=== PATIENT | male | born 1970 | race Caucasian/White ===

== ENCOUNTER 2020-04-27 08:06 | Outpatient (REF) | payer OTHER, SELFPAY | END 2020-04-27 08:07 | disposition home or self-care (01) | LOC: HO.LAB 08:06 | PROVIDERS: Visit Provider Internal Medicine | DX: Z20.822 Contact with and (suspected) exposure to COVID-19 (principal) | CPT/HCPCS: 36415; C9803; U0003; U0005 ==

== ENCOUNTER 2020-12-28 20:43 | Emergency (ER) | payer OTHER, SELFPAY ==
--- NOTE | ~2020-12-28 | CT_ITS ---
EXAMINATION: CT ABDOMEN AND PELVIS WITH CONTRAST CLINICAL INFORMATION: Right lower quadrant pain COMPARISON: None TECHNIQUE: Multidetector volumetric images were obtained from the superior aspect of the liver through the pubic symphysis following administration 85 mL of Omnipaque 350 intravenous contrast. Sagittal and coronal reformatted images were obtained on the technologist's workstation. Oral contrast: No This CT examination was performed using dose optimization techniques as appropriate, variously including the following: *Automated exposure control *Adjustment of mA and/or kV according to patient size (this includes techniques or standardized protocols for targeted exams where dose is matched to indication/reason for exam; i.e. extremities or head) *Use of iterative reconstruction technique DLP: 597 mGy-cm FINDINGS: LUNG BASES: The visualized lung bases are unremarkable. LIVER, GALLBLADDER, AND BILIARY TREE: The liver is normal in size, shape, and attenuation. No focal hepatic lesion or biliary ductal dilatation is present. The gallbladder is unremarkable with no evidence of radiopaque gallstones, gallbladder wall thickening, or obvious pericholecystic inflammatory changes. PANCREAS: Unremarkable. SPLEEN: Unremarkable. ADRENAL GLANDS: Unremarkable. KIDNEYS AND URETERS: The kidneys are normal in size, shape, and attenuation. No hydronephrosis, hydroureter, or calculi seen. No perinephric stranding. BLADDER: Unremarkable. GASTROINTESTINAL TRACT: Wall thickening of the distal esophagus. The stomach is unremarkable. Normal caliber small bowel. Normal appendix. No colonic wall thickening or inflammatory change. Scattered diverticulosis without diverticulitis. No free air or free fluid. ABDOMINAL WALL: No significant hernia is appreciated. LYMPH NODES: Normal. VASCULAR: Unremarkable. PELVIC VISCERA: The prostate and seminal vesicles are unremarkable. OSSEOUS STRUCTURES: No acute or suspicious osseous abnormality. Mild degenerative change throughout the spine. CT/CT abdomen pelvis w con IMPRESSION: No acute findings in the abdomen or pelvis. Normal appendix.
[2020-12-28 22:12] VITALS: BP 123/89; PULSE 111; RESP 18; TEMP 37.4; O2SAT 96; BMI 25.2
[2020-12-28 23:07] LABS: COVID-19 Test Negative (Negative); IDNOW Serial# 9DD0AD1C
--- NOTE | 2020-12-29 01:23 | ED.GENADULT ---
HPI - General Adult General Chief complaint: Abdominal Pain Stated complaint: abd pain, vomitting Time Seen by Provider: 12/29/20 00:51 Source: patient Mode of arrival: ambulatory Limitations: no limitations History of Present Illness HPI narrative: Patient comes to the emergency room complaining of 3 days of abdominal pain. Patient states it starts in the right lower quadrant, sometimes in his flank pain, the back. Patient states that he has been making himself throw up which makes him feel better. Patient denies diarrhea. Patient states that he has been nauseous, unable to drink any fluids., denies fever chills, no dysuria or hematuria. Related Data Previous Rx's Medication Instructions Recorded cyclobenzaprine 10 mg tablet 10 mg PO TID PRN #7 tab 12/29/20 hyoscyamine sulfate 0.125 mg tablet 0.125 mg PO QID PRN #7 tab 12/29/20 Allergies Allergy/AdvReac Type Severity Reaction Status Date / Time No Known Allergies Allergy Verified 12/28/20 22:11 Review of Systems Review of Systems: Constitutional : No Weight loss, No Fever, No Chills, No Night Sweats, No Fatigue, No Malaise ENT/Mouth : No Hearing loss, No Ear Pain, No Nasal Congestion, No Sinus Pain, No Hoarseness, No sore throat, No Rhinorrhea, No Swallowing Difficulty Eyes: No Eye Pain, No Swelling, No Redness, No Foreign Body, No Discharge, No Vision Changes Cardiovascular : No Chest Pain, No SOB, No Dyspnea on Exertion, No Orthopnea, No Edema, No Palpitations Respiratory : No Cough, No Sputum, No Wheezing, No Smoke Exposure, No Dyspnea Gastrointestinal : Complaining of nausea, self-induced vomiting, no diarrhea, right lower quadrant, right flank pain, right back pain . Genitourinary : no irregular bleeding, No Dysuria, No Urinary Frequency, No Hematuria, No Urinary Incontinence, No Urgency, No Flank Pain, No Urinary Flow Changes, No Hesitancy Musculoskeletal : No joint pain, No Myalgias, No Joint Swelling Skin : No Skin Lesions, No rash Neuro : No Weakness, No Numbness, No Paresthesias, No Loss of Consciousness, No Dizziness, No Headache Psych : No Anxiety/Panic, No Depression, No SI/HI/AH/VH, No Social Issues, Heme/Lymph: No Bruising, No Bleeding,No Lymphadenopathy Endocrine : No Polyuria, No Polydipsia, No Temperature Intolerance [facility] Past Medical History Medical History Diabetes GERD (gastroesophageal reflux disease) Social History Social History Advance Directives: No Advance Directives Information Provided: No Physical Exam Vital Signs: Vital Signs: Last Vital Signs Temp 98.3 F 12/29/20 01:32 Pulse 105 H 12/29/20 01:32 Resp 16 12/29/20 01:32 BP 131/94 H 12/29/20 01:32 Pulse Ox 97 12/29/20 01:32 Body Mass Index 25.2 Const: Other: Appearance: Alert. Oriented X3. No acute distress. Eyes: Pupils equal, round and reactive to light. ENT: Pharynx normal. Neck: Normal inspection. Neck supple. No lymph nodes noted. No crepitus CVS: Normal heart rate and rhythm. Pulses normal. Normal S1 and S2 Respiratory: No respiratory distress. Breath sounds normal. No Wheezing. No rales Abdomen: Soft , mild tenderness to deep palpation in the right lower quadrant, no CVA tenderness, No rigidity. No distention. Skin: Skin warm and dry. Normal skin color. Normal skin turgor. Extremities: No lower extremity edema. No lower extremity edema. No Lacerations. No Rash Neuro: Oriented X 3. No motor deficit. No sensory deficit. Moving all extermities. No slurred speech. Course Course Course Narrative: I discussed the labs and imaging with the patient, no acute findings. Patient's pain likely musculoskeletal. Medical Decision Making Lab Data Result diagrams: 12/29/20 01:41 12/29/20 01:41 Labs: Lab Results 12/28/20 12/29/20 12/29/20 Range/Units 22:21 01:41 01:41 WBC 9.0 (4.8-10.8) X10*3/uL RBC 5.67 (4.60-5.80) X10*6/uL Hgb 17.8 (14.0-18.0) g/dl Hct 50.5 (42-52) % MCV 89.1 (80-98) fL MCH 31.4 (27.0-33.0) pg MCHC 35.2 (31.0-36.0) g/dl RDW 13.2 (11.0-16.0) % Plt Count 209 (160-400) X10*3/uL MPV 10.5 (9.4-12.4) fL Immature Gran % (Auto) 0.2 (0.0-0.4) % Neut % (Auto) 77.2 H (45-73) % Lymph % (Auto) 15.8 L (20-40) % [place] % (Auto) 6.1 (2-11) % Eos % (Auto) 0.6 (0-4) % Baso % (Auto) 0.1 (0-2) % Lymph # (Auto) 1.4 (1.2-4.9) X10*3/uL [place] # (Auto) 0.6 (0.1-1.2) X10*3/uL Eos # (Auto) 0.1 (0.0-0.4) X10*3/uL Baso # (Auto) 0.0 (0.0-0.2) X10*3/uL Abs Immat Gran (auto) 0.02 (0.00-0.03) X10*3/uL Absolute Neuts (auto) 6.9 (2.0-8.3) X10*3/uL Absolute Nucleated RBC 0.000 (0.0-0.012) X10*3/uL Nucleated RBC % (auto) 0.0 (0.0-0.2) /100WBC Sodium 141 (135-145) mmol/L Potassium 4.3 (3.3-5.1) mmol/L Chloride 98 (96-108) mmol/L Carbon Dioxide 30 H (22-29) mmol/L Anion Gap 17 (12-20) BUN 25 H (9-16) mg/dL Creatinine 1.09 (0.5-1.4) mg/dL Estim Creat Clear Calc 88.2 Estimated GFR > 60 POC Glucose (60-115) mg/dL Random Glucose 130 H (60-115) mg/dL Calcium 10.7 H (8.4-10.2) mg/dL Total Bilirubin 1.1 H (0.0-1.0) mg/dL AST 20 (5-37) U/L ALT 25 (0-40) U/L Alkaline Phosphatase 69 (39-117) U/L Total Protein 9.1 H (6.5-8.0) g/dL Albumin 5.4 H (3.5-5.0) g/dL Lipase (8-78) U/L Urine Color Urine Appearance Urine pH (5.0-8.0) Ur Specific [place] (1.005-1.025) Urine Protein (NEG-TRACE) MG/DL Urine Glucose (UA) (NEG) MG/DL Urine Ketones (NEG) MG/DL Urine Blood (NEG) Urine Nitrite (NEG) Ur Leukocyte Esterase (NEG) Urine RBC (0) /HPF Urine WBC (0-4) /HPF Ur Squamous Epith Cells /LPF Urine Bacteria /LPF COVID-19 ([facility]) Negative (Negative) COVID-19 Clin Com See Note 12/29/20 12/29/20 12/29/20 Range/Units 01:41 01:41 02:04 WBC (4.8-10.8) X10*3/uL RBC (4.60-5.80) X10*6/uL Hgb (14.0-18.0) g/dl Hct (42-52) % MCV (80-98) fL MCH (27.0-33.0) pg MCHC (31.0-36.0) g/dl RDW (11.0-16.0) % Plt Count (160-400) X10*3/uL MPV (9.4-12.4) fL Immature Gran % (Auto) (0.0-0.4) % Neut % (Auto) (45-73) % Lymph % (Auto) (20-40) % [place] % (Auto) (2-11) % Eos % (Auto) (0-4) % Baso % (Auto) (0-2) % Lymph # (Auto) (1.2-4.9) X10*3/uL [place] # (Auto) (0.1-1.2) X10*3/uL Eos # (Auto) (0.0-0.4) X10*3/uL Baso # (Auto) (0.0-0.2) X10*3/uL Abs Immat Gran (auto) (0.00-0.03) X10*3/uL Absolute Neuts (auto) (2.0-8.3) X10*3/uL Absolute Nucleated RBC (0.0-0.012) X10*3/uL Nucleated RBC % (auto) (0.0-0.2) /100WBC Sodium (135-145) mmol/L Potassium (3.3-5.1) mmol/L Chloride (96-108) mmol/L Carbon Dioxide (22-29) mmol/L Anion Gap (12-20) BUN (9-16) mg/dL Creatinine (0.5-1.4) mg/dL Estim Creat Clear Calc Estimated GFR POC Glucose 134 H (60-115) mg/dL Random Glucose (60-115) mg/dL Calcium (8.4-10.2) mg/dL Total Bilirubin (0.0-1.0) mg/dL AST (5-37) U/L ALT (0-40) U/L Alkaline Phosphatase (39-117) U/L Total Protein (6.5-8.0) g/dL Albumin (3.5-5.0) g/dL Lipase 23 (8-78) U/L Urine Color YELLOW Urine Appearance CLEAR Urine pH 6.0 (5.0-8.0) Ur Specific [place] >= 1.030 H (1.005-1.025) Urine Protein 1+ H (NEG-TRACE) MG/DL Urine Glucose (UA) NEG (NEG) MG/DL Urine Ketones 15 (NEG) MG/DL Urine Blood NEG (NEG) Urine Nitrite NEG (NEG) Ur Leukocyte Esterase NEG (NEG) Urine RBC 0 (0) /HPF Urine WBC 0-2 (0-4) /HPF Ur Squamous Epith Cells NONE /LPF Urine Bacteria NONE /LPF COVID-19 ([facility]) (Negative) COVID-19 Clin Com Discharge Plan Discharge Clinical Impression: Abdominal pain, Flank pain Patient Disposition: Home, Self-Care Instructions: Abdominal Pain (ED), Flank Pain (ED) Additional Instructions: Please follow-up with your primary care physician tomorrow. If you have any worsening or new symptoms, please return to the emergency room or call 911 Prescriptions: New hyoscyamine sulfate 0.125 mg tablet 0.125 mg PO QID PRN (Reason: dyspepsia) Qty: 7 RF: 0 cyclobenzaprine 10 mg tablet 10 mg PO TID PRN (Reason: muscle spasm) Qty: 7 RF: 0
[2020-12-29 01:32] VITALS: BP 131/94; PULSE 105; RESP 16; TEMP 36.8; O2SAT 97
[2020-12-29] MEDS: ondansetron HCL 4 MG/2 ML VIAL IVPUSH (01:46)
[2020-12-29 01:47] LABS: MANUAL DIFF FLAG NO
[2020-12-29] MEDS: 0.9 % Sodium Chloride 1,000 ML 999 ML IVCONT (01:47)
[2020-12-29 01:49] LABS: Basophils Percent Auto 0.1 % (0-2); Eosinophils Absolute Auto 0.1 X10*3/uL (0.0-0.4); Eosinophils Percent Auto 0.6 % (0-4); Hematocrit 50.5 % (42-52); Hemoglobin 17.8 g/dl (14.0-18.0); Imm Gran Abs Auto 0.02 X10*3/uL (0.00-0.03); Imm Gran Pct Auto 0.2 % (0.0-0.4); Lymphocytes Absolute Auto 1.4 X10*3/uL (1.2-4.9); Lymphocytes Percent Auto 15.8 % (20-40); Mean Corpuscular HGB Conc 35.2 g/dl (31.0-36.0); Mean Corpuscular Hemoglobin 31.4 pg (27.0-33.0); Mean Corpuscular Volume 89.1 fL (80-98); Mean Platelet Volume 10.5 fL (9.4-12.4); Monocytes Absolute Auto 0.6 X10*3/uL (0.1-1.2); Monocytes Percent Auto 6.1 % (2-11); Neutrophils Absolute Auto 6.9 X10*3/uL (2.0-8.3); Neutrophils Percent Auto 77.2 % (45-73); Platelet Count 209 X10*3/uL (160-400); Red Blood Count 5.67 X10*6/uL (4.60-5.80); Red Cell Distribution Width 13.2 % (11.0-16.0)
[2020-12-29 02:03] LABS: Appearance Urine CLEAR; Color Urine YELLOW; Glucose Urine UA NEG (NEG); Leukocyte Esterase Urine NEG (NEG); Nitrite Urine NEG (NEG); Specific Gravity - Urine >= 1.030 (1.005-1.025); UACC Culture Trigger NO; Urine Blood NEG (NEG); Urine Ketones 15 MG/DL (NEG); Urine Protein 1+ MG/DL (NEG-TRACE)
[2020-12-29 02:07] LABS: Glucose, Whole Blood 134 mg/dL (60-115)
[2020-12-29 02:12] LABS: Lipase 23 U/L (8-78)
[2020-12-29 02:16] LABS: Alanine Aminotransferase 25 U/L (0-40); Albumin Level 5.4 g/dL (3.5-5.0); Alkaline Phosphatase 69 U/L (39-117); Anion Gap 17 (12-20); Aspartate Amino Transferase 20 U/L (5-37); Bilirubin Total 1.1 mg/dL (0.0-1.0); Blood Urea Nitrogen 25 mg/dL (9-16); Calcium 10.7 mg/dL (8.4-10.2); Carbon Dioxide 30 mmol/L (22-29); Chloride 98 mmol/L (96-108); Creatinine Clr Calc Pharmacy 88.2; Estimated Glomerular Filt Rate > 60; Glucose Random 130 mg/dL (60-115); Potassium 4.3 mmol/L (3.3-5.1); RBC Urine 0 /HPF (0); Sodium 141 mmol/L (135-145); Total Protein 9.1 g/dL (6.5-8.0); WBC Urine 0-2 /HPF (0-4)
[2020-12-29] MEDS: Prochlorperazine Edisylate 10 MG/2 ML VIAL IVPUSH (03:29)
[2020-12-29 05:16] VITALS: BP 138/86; PULSE 92; RESP 16; TEMP 36.8; O2SAT 96
== END 2020-12-29 05:23 | disposition home or self-care (01) ==
PROVIDERS: Emergency Provider Emergency Medicine
DX: R10.9 Unspecified abdominal pain (principal); Z20.822 Contact with and (suspected) exposure to COVID-19; Z79.899 Other long term (current) drug therapy
CPT/HCPCS: 36415; 74177; 80053; 81001; 81003; 82947; 83690; 85025; 87635; 96361; 96374; 96375; 99284; J2405

== ENCOUNTER 2021-02-15 04:14 | Inpatient (IN) | payer OTHER, SELFPAY ==
--- NOTE | ~2021-02-15 | MR_ITS ---
EXAMINATION: MR FOOT WITHOUT AND WITH CONTRAST, RIGHT CLINICAL INFORMATION: Diabetes. COMPARISON: X-ray of the left foot January 2021 TECHNIQUE: MRI of the right foot was performed without and with contrast. Contrast dose: 10 mL of Gadavist given intravenously. FINDINGS: SUBCUTANEOUS SOFT TISSUES: There appears to be irregularity and possible ulceration along the lateral plantar aspect of the forefoot at the level of the 5th metatarsophalangeal joint. This measures approximately 14 mm as seen on the sagittal image 25 series 3. The medial and lateral borders are not clearly defined on the short axis coronal images. Deep to this suspected ulceration is abnormal signal decreased T1 and heterogeneously increased on T2 without central enhancement. There is some generalized enhancement in the subcutaneous soft tissues medial and dorsal to this area. This could reflect an evolving abscess or area of adventitial bursitis. FIFTH METATARSOPHALANGEAL JOINT: There is a joint effusion and arthrosis with some cartilage loss and subchondral cystic change. There is also bone marrow edema crossing the joint present within the metatarsal head and throughout the proximal two-thirds portion of the proximal phalanx. No definite bone erosion. FIRST METATARSOPHALANGEAL JOINT: There is a mild joint effusion. No definite arthrosis. No marrow edema. There is generalized abnormal signal in the dorsal subcutaneous soft tissues with partial enhancement compatible with a combination of edema and cellulitis. There is generalized abnormal signal with some enhancement of the muscles of the foot compatible with nonspecific myositis. The tendons are intact. The neurovascular structures are intact. MR/MR foot RT wo/w con IMPRESSION: Suspect small soft tissue ulceration along the lateral aspect of the forefoot at the level of the 5th metatarsophalangeal joint. There is abnormal signal in the underlying subcutaneous soft tissues which I suspect reflects a localized cellulitis, evolving abscess or adventitial bursitis. Indeterminant findings across the 5th metatarsophalangeal joint. This could be a sequela of osteoarthritis. However, cannot exclude early septic arthritis and osteomyelitis given the patient's history and the surrounding soft tissue abnormality. Generalized abnormality in the subcutaneous soft tissues dorsally compatible with a combination of edema and cellulitis. Generalized abnormality of the muscles compatible with nonspecific myositis.
--- NOTE | ~2021-02-15 | XR_ITS ---
EXAMINATION: XR FOOT, RIGHT CLINICAL INFORMATION: Fifth metatarsal wound, rule out bone erosion COMPARISON: None TECHNIQUE: AP, lateral, and oblique views of the right foot. FINDINGS: Osseous alignment is anatomic. No acute fracture is seen. No cortical erosions are identified. Mild posterior calcaneal spurring is noted. Soft tissue swelling is suspected near the head of the fifth metatarsal. XR/XR foot RT 2V IMPRESSION: Soft tissue swelling near the head of the fifth metatarsal without appreciable cortical erosion.
[2021-02-15 04:17] VITALS: BP 107/77; PULSE 104; RESP 18; TEMP 37.3; O2SAT 97; BMI 27.8
--- NOTE | 2021-02-15 05:10 | ED_ITS ---
HPI - Extremity Problem General Chief complaint: Extremity Problem Stated complaint: right foot infection Time Seen by Provider: 02/15/21 05:08 Source: patient Mode of arrival: ambulatory Limitations: no limitations History of Present Illness HPI Narrative: patient diabetic for last 15 years on insulin and oral hyp oglycemic noticed small blister on the right lateral aspect of right foot for 5 days ago which got worse for last 2 days noticed redness spreading to the dorsum of the foot. No fever no chills patient's blood sugar is well controlled HbA1c less than 6 patient does have milddiabetic neuropathy and does not take any medications Related Data Previous Rx's Medication Instructions Recorded cyclobenzaprine 10 mg tablet 10 mg PO TID PRN #7 tab 12/29/20 hyoscyamine sulfate 0.125 mg tablet 0.125 mg PO QID PRN #7 tab 12/29/20 Allergies Allergy/AdvReac Type Severity Reaction Status Date / Time No Known Allergies Allergy Verified 12/28/20 22:11 Review of Systems Review of Systems: Yes all other systems are reviewed and are negative [facility] Past Medical History Medical History Diabetes GERD (gastroesophageal reflux disease) Social History Social History Advance Directives: No Advance Directives Information Provided: Yes Physical Exam Vital Signs: Vital Signs: Last Vital Signs Temp 99.2 F 02/15/21 04:17 Pulse 104 H 02/15/21 04:17 Resp 18 02/15/21 04:17 BP 107/77 02/15/21 04:17 Pulse Ox 97 02/15/21 04:17 Body Mass Index 27.8 Const: General: cooperative, healthy appearing and no acute distress Orientation/consciousness: patient oriented x3 HENMT: Head: Yes normocephalic and Yes atraumatic Mouth: Normal oral and palatal mucosa present Eyes: General: appearance normal, both eyes and all related structures Resp: Effort & Inspection: normal respiratory effort Auscultation: clear to auscultation bilaterally Cardio: Palpation: normal PMI Rate: regular rate Rhythm: regular rhythm Heart sounds: S1 normal heart sound present and S2 normal heart sound present Peripheral pulses: Peripheral pulses 2+ throughout GI: Inspection: Yes normal to inspection Palpation (GI): Soft to palpation and nontender Neuro: General: patient oriented x3, gait normal, no focal motor deficits and decrease sensation to monofilament (b/l feet) Extrem: Other: General: Yes other ( post debridement pictures are attached) MDM - Extremity (Nontraumatic) MDM Narrative Medical decision making narrative: patient diabetic foot with leukocytosis and cellulitis debridement done in the ER but because of diabetes worsening cellulitis in such a short. Will admit patient for IV antibiotics at this time there is no signs of osteomyelitis Lab Data Attestation: I reviewed the patient's lab results. Result diagrams: 02/15/21 05:30 02/15/21 05:30 Labs: Lab Results 02/15/21 02/15/21 02/15/21 Range/Units 05:30 05:30 05:30 WBC 16.8 H (4.8-10.8) X10*3/uL RBC 4.75 (4.60-5.80) X10*6/uL Hgb 14.7 (14.0-18.0) g/dl Hct 43.2 (42.0-52.0) % MCV 90.9 (80.0-98.0) fL MCH 30.9 (27.0-33.0) pg MCHC 34.0 (31.0-36.0) g/dl RDW 12.3 (11.0-16.0) % Plt Count 205 (160-400) X10*3/uL MPV 9.7 (9.4-12.4) fL Immature Gran % (Auto) 0.7 H (0.0-0.4) % Neut % (Auto) 84.9 H (45-73) % Lymph % (Auto) 6.6 L (20-40) % [place] % (Auto) 7.3 (2-11) % Eos % (Auto) 0.4 (0-4) % Baso % (Auto) 0.1 (0-2) % Lymph # (Auto) 1.1 L (1.2-4.9) X10*3/uL [place] # (Auto) 1.2 (0.1-1.2) X10*3/uL Eos # (Auto) 0.1 (0.0-0.4) X10*3/uL Baso # (Auto) 0.0 (0.0-0.2) X10*3/uL Abs Immat Gran (auto) 0.11 H (0.00-0.03) X10*3/uL Absolute Neuts (auto) 14.3 H (2.0-8.3) x10*3/uL Absolute Nucleated RBC 0.000 (0.0-0.012) X10*3/uL Nucleated RBC % (auto) 0.0 (0.0-0.2) /100WBC Sodium 135 (135-145) mmol/L Potassium 4.0 (3.3-5.1) mmol/L Chloride 100 (96-108) mmol/L Carbon Dioxide 26 (22-29) mmol/L Anion Gap 13 (12-20) BUN 13 (9-16) mg/dL Creatinine 0.91 (0.5-1.4) mg/dL Estim Creat Clear Calc 113.1 Estimated GFR > 60 Random Glucose 220 H D (60-115) mg/dL Lactic Acid 1.1 (0.5-2.0) mmol/L Calcium 9.0 D (8.4-10.2) mg/dL Discharge Plan Discharge Clinical Impression: Diabetic foot infection Cellulitis Qualifiers: Site of cellulitis: extremity Site of cellulitis of extremity: lower extremity Laterality: right Qualified Code(s): L03.115 - Cellulitis of right lower limb Patient Disposition: Admitted As Inpatient
[2021-02-15 05:41] LABS: MANUAL DIFF FLAG NO
[2021-02-15 05:44] LABS: Basophils Percent Auto 0.1 % (0-2); Eosinophils Absolute Auto 0.1 X10*3/uL (0.0-0.4); Eosinophils Percent Auto 0.4 % (0-4); Hematocrit 43.2 % (42.0-52.0); Hemoglobin 14.7 g/dl (14.0-18.0); Imm Gran Abs Auto 0.11 X10*3/uL (0.00-0.03); Imm Gran Pct Auto 0.7 % (0.0-0.4); Lymphocytes Absolute Auto 1.1 X10*3/uL (1.2-4.9); Lymphocytes Percent Auto 6.6 % (20-40); Mean Corpuscular Hemoglobin 30.9 pg (27.0-33.0); Mean Corpuscular Volume 90.9 fL (80.0-98.0); Mean Platelet Volume 9.7 fL (9.4-12.4); Monocytes Absolute Auto 1.2 X10*3/uL (0.1-1.2); Monocytes Percent Auto 7.3 % (2-11); Neutrophils Absolute Auto 14.3 x10*3/uL (2.0-8.3); Neutrophils Percent Auto 84.9 % (45-73); Platelet Count 205 X10*3/uL (160-400); Red Blood Count 4.75 X10*6/uL (4.60-5.80); Red Cell Distribution Width 12.3 % (11.0-16.0); White Blood Count 16.8 X10*3/uL (4.8-10.8)
[2021-02-15] MEDS: Piperacillin Sodium/Tazobactam 3.375 GM in 0.9 % Sodium Chloride 50 ML IV (05:44)
[2021-02-15 05:54] LABS: Lactic Acid 1.1 mmol/L (0.5-2.0)
[2021-02-15 05:58] LABS: Anion Gap 13 (12-20); Blood Urea Nitrogen 13 mg/dL (9-16); Carbon Dioxide 26 mmol/L (22-29); Chloride 100 mmol/L (96-108); Creatinine Clr Calc Pharmacy 113.1; Estimated Glomerular Filt Rate > 60; Glucose Random 220 mg/dL (60-115); Sodium 135 mmol/L (135-145)
[2021-02-15] MEDS: vancomycin HCL 1,000 MG in 0.9 % Sodium Chloride 250 ML 270 MG IV ×2 (06:31→09:33)
--- NOTE | 2021-02-15 08:02 | P.HPHOSP_ITS ---
History of Present Illness Date of Service: 02/15/21 Chief Complaint: left foot infection 51 male with type 2 diabetes on Metformin 1 gm twice a day here with left foot infection that started about a week ago as a blood blister that he ended up poping and the area having becoming subsequently infected as noted in the picture below. He denies trauma, WBC is 16, no fever. Xray shows soft tissue swelling no bone involvment. Given Vanco and Zosyn in ED. Review of Systems Review of Systems: Gen: no fever Resp: no sob, no cough CV: no chest, no FOOTE, no leg edema GI: No n/v, no abd pain Neuro: No confusion MSK: No pain in the foot Yes all other systems are reviewed and are negative [facility] Medical History Diabetes GERD (gastroesophageal reflux disease) Social History Alcohol intake: never Smoked in Last 30 Days: No Use of substances other than those prescribed or required for medical reasons: No Advance Directives: No Advance Directives Information Provided: Yes Meds Allergies Allergy/AdvReac Type Severity Reaction Status Date / Time No Known Allergies Allergy Verified 12/28/20 22:11 Physical Exam Vital Signs and Narrative: Vital Signs: Last Vital Signs Temp 99.2 F 02/15/21 04:17 Pulse 104 H 02/15/21 04:17 Resp 18 02/15/21 04:17 BP 107/77 02/15/21 04:17 Pulse Ox 97 02/15/21 04:17 Body Mass Index 27.8 Const: Other: Constitutional: Alert, in no distress, Mental Status: Oriented to person, place and time. Eyes: Pupils are equal, round and reactive to light. Ear, Nose and Throat: Oropharynx clear, mucous membranes moist. Ears and nose without eformities. Trachea midline. Respiratory: Clear to auscultation. No wheezing, rales or rhonchi. Cardiovascular: S1 S2 regular. No murmurs, rubs or gallops. Gastrointestinal: Abdomen soft, non-tender, non-distended. Normal bowel sounds.? Neurologic: Cranial nerves II-XII grossly intact. No focal neurological deficits. Moves all extremities spontaneously.? Skin: Musculoskeletal: No cyanosis or clubbing. Psychiatric: Normal mood and affect? Results Labs CBC and Chem 7: 02/15/21 05:30 02/15/21 05:30 Labs: Laboratory Results - last 24 hr 02/15/21 02/15/21 02/15/21 05:30 05:30 05:30 MCV 90.9 MCH 30.9 MCHC 34.0 RDW 12.3 Plt Count 205 MPV 9.7 Immature Gran % (Auto) 0.7 H Neut % (Auto) 84.9 H Lymph % (Auto) 6.6 L [place] % (Auto) 7.3 Eos % (Auto) 0.4 Baso % (Auto) 0.1 Lymph # (Auto) 1.1 L [place] # (Auto) 1.2 Eos # (Auto) 0.1 Baso # (Auto) 0.0 Abs Immat Gran (auto) 0.11 H Absolute Neuts (auto) 14.3 H Absolute Nucleated RBC 0.000 Nucleated RBC % (auto) 0.0 Anion Gap 13 Estim Creat Clear Calc 113.1 Estimated GFR > 60 Random Glucose 220 H D Lactic Acid 1.1 Calcium 9.0 D Imaging Radiologist's Impressions: Impressions Foot X-Ray 02/15/21 05:08 IMPRESSION: Soft tissue swelling near the head of the fifth metatarsal without appreciable cortical erosion. Assessment and Plan (1) Diabetic foot infection: Status: Acute (2) Cellulitis: Qualifiers: Laterality: right Site of cellulitis: extremity Site of cellulitis of extremity: lower extremity Qualified Code(s): L03.115 - Cellulitis of right lower limb Status: Acute (3) Sepsis: Status: Acute 51 year old man with diabetes here with cellulitis and wound infection from a blister and has sepsis with elevated wbc and tachycardia Diabetes infected woud/cellulitis, sepsis -continue Vanco and zosyn, surgery consult for debridment, ID to advise on Abx, follow cultures Diabetes--continue Metformin and Trulicity, SSI, diabetic diet lovenox for DVT proph Quality Stroke Does the patient have a stroke diagnosis?: No VTE Prior VTE?: No VTE Risk Level:: Medical - moderate - high VTE Device Contraindication: Treatment Not Indicated VTE Drug Contraindication: N/A - Med Ordered
[2021-02-15 08:29] VITALS: BP 117/73; PULSE 93; RESP 15; TEMP 36.8; O2SAT 95
[2021-02-15 08:54] LABS: COVID-19 Test Negative (Negative)
--- NOTE | 2021-02-15 11:09 | PHA.PROG ---
Admission Date/Time: February 15, 2021 08:22 Indication: Weight in k.718 kg Serum Creatinine - Last 168 Hours 02/15/21 05:30 Creatinine 0.91 Estimated CrCl and GFR - Last 168 Hours 02/15/21 05:30 Estim Creat Clear Calc 113.1 Estimated GFR > 60 Vancomycin Loading Dose: [id number] TOTAL Current Vancomycin Dosing Regimen: 1250MG Q 12H Vancomycin Monitoring using AUC goal of 400 - 600 range with trough as surrogate marker: 530MG Date and Time for next Vancomycin Level to be drawn: 02/16 @ 1900 Pharmacist Comments on Vancomycin Plan: Added extra 1000mg to be total of 2 gram load. Target AUC of 530 and trough of 16.5. Vancomycin dosing will take advantage of [employer] as a clinical decision support tool that uses Bayesian modeling to calculate individual patient's pharmacokinetic parameters and forecast the patient's drug concentration time course with the target goal AUC 24 range of 400 - 600 mg/L/hr.
[2021-02-15 12:18] LABS: Glucose, Whole Blood 196 mg/dL (60-115)
--- NOTE | 2021-02-15 12:26 | PHA.MEDREC ---
MED REC COMPLETE, PATIENT STATES HE IS ON METFORMIN BUT IT HASNT BEEN FILLED AT PHARMACY SINCE JAN 2020 Pharmacy Consult ? Medication Reconciliation Pharmacy has completed the medication reconciliation.
--- NOTE | 2021-02-15 18:35 | PM.HPGS ---
History of Present Illness History of Present Illness Date of Service: 02/15/21 Chief complaint: diabetic foot ulcer, cellulitis Narrative: Shakir Quinones is a 51 year old male diabetic with diabetic neuropathy wearing shoes and developed a blood blister laterally and left it and kept walking on it over the last two weeks and now comes into er with it red and swollen and cellulitic picture and tissue compromise this has never happened before. no fevers or chills. glucose levels have been harder to control [facility] Past Medical History Medical History Diabetes GERD (gastroesophageal reflux disease) Functional capacity: independent ambulation Social History Social History Alcohol intake: never Smoked in Last 30 Days: No Use of substances other than those prescribed or required for medical reasons: No Advance Directives: No Advance Directives Information Provided: Yes Meds Allergies Allergy/AdvReac Type Severity Reaction Status Date / Time No Known Allergies Allergy Verified 12/28/20 22:11 Active Medications: Current Medications Acetaminophen (Acetaminophen 325 Mg Tablet) 650 mg PO Q6H PRN PRN Reason: Pain, Mild (Pain Scale 1-3) Vancomycin HCl 1,250 mg/ (Sodium Chloride) 250 mls @ 166.667 mls/hr IV Q12H TONIA Melatonin (Melatonin 3 Mg Tablet) 6 mg PO BEDTIME PRN PRN Reason: Insomnia Oxycodone HCl (Oxycodone Hcl Immed Release 5 Mg Tablet) 5 mg PO Q6H PRN PRN Reason: Pain, Severe (Pain Scale 7-10) Pharmacy Consult (Consult Rx Vancomycin Dosing) 1 each MISCELLANE DAILY PRN PRN Reason: Consult order Sodium Chloride (0.9 % Sodium Chloride Flush 3 Ml Syringe) 3 ml IVFLUSH QSHIFT [facility] Last Admin: 02/15/21 15:29 Dose: Not Given Documented by: Home Medications Medication Instructions Recorded Confirmed Last Taken Type dulaglutide 1.5 mg/0.5 mL 1.5 mg SUBCUT FR@1000 02/15/21 02/15/21 Unknown History subcutaneous pen injector (Trulicity) finasteride 5 mg tablet 5 mg PO DAILY 02/15/21 02/15/21 Unknown History metformin 500 mg tablet 1,000 mg PO BIDWM 02/15/21 02/15/21 Unknown History multivitamin 1 tab PO DAILY 02/15/21 02/15/21 Unknown History Physical Exam Vital Signs: Vital Signs: Last Vital Signs Temp 98.3 F 02/15/21 08:29 Pulse 93 02/15/21 08:29 Resp 15 02/15/21 08:29 BP 117/73 02/15/21 08:29 Pulse Ox 95 02/15/21 08:29 Body Mass Index 27.8 Skin: Other: right foot with cellulitis lateral aspect of foot going to dorsal foot area strong palpable Dp pulse soft tissue bruising and superficial necrosis 5th toe lateraly and heading to plantar area Results Results Labs: Short CBC 02/15/21 Range/Units 05:30 WBC 16.8 H (4.8-10.8) X10*3/uL Hgb 14.7 (14.0-18.0) g/dl Hct 43.2 (42.0-52.0) % Plt Count 205 (160-400) X10*3/uL BMP 02/15/21 05:30 Sodium 135 Potassium 4.0 Chloride 100 Carbon Dioxide 26 BUN 13 Creatinine 0.91 Calcium 9.0 D Assessment and Plan (1) Diabetic foot infection: Status: Acute pt with diabetic foot wound - admit and dressings and iv antibx . nothing to debride at this point. will follow along and see how it changes with antibx. he understands and agrees with plan. tight glucose control (2) Cellulitis: Qualifiers: Laterality: right Site of cellulitis: extremity Site of cellulitis of extremity: lower extremity Qualified Code(s): L03.115 - Cellulitis of right lower limb Status: Acute Quality Stroke Does the patient have a stroke diagnosis?: No VTE Prior VTE?: No VTE Risk Level:: Medical - moderate - high VTE Device Contraindication: Treatment Not Indicated VTE Drug Contraindication: N/A - Med Ordered Procedures Date of Service Date of Service: 02/15/21
[2021-02-15 19:30] VITALS: BP 140/90; PULSE 100; RESP 18; TEMP 36.6; O2SAT 96
[2021-02-15 19:31] LABS: Glucose, Whole Blood 262 mg/dL (60-115)
[2021-02-15] MEDS: vancomycin HCL 1,250 MG in 0.9 % Sodium Chloride 250 ML 166.67 MG IV (20:31)
[2021-02-15 20:59] LABS: Glucose, Whole Blood 263 mg/dL (60-115)
[2021-02-15] MEDS: Insulin Lispro 100 UNIT/ML 3 ML VIAL SUBCUT (21:08)
--- NOTE | 2021-02-15 23:19 | P.CNID_ITS ---
History of Present Illness Data of Consult Service Date: 02/15/21 Requesting physician: Celestino Dias Primary Care Provider: Migel Kurtz MD [facility] Reason for consult: right foot infection He presents with five days redness and blister lateral right foot. He has no fever or chills He has not taken antibiotics He has elevated blood sugar but normally 80-100 on Metformin and Trulicity Review of Systems Review of Systems: Yes all other systems are reviewed and are negative [facility] Past Medical History Medical History Diabetes GERD (gastroesophageal reflux disease) Functional capacity: independent ambulation Family History Family history: reviewed and not pertinent Social History Social History Household Members: Family Housing: House Do you presently have visiting nurse or other home services: No Alcohol intake: never Patient Tobacco Use Status: Never used Tobacco Meds Allergies Allergy/AdvReac Type Severity Reaction Status Date / Time No Known Allergies Allergy Verified 12/28/20 22:11 Active Medications: Current Medications Acetaminophen (Acetaminophen 325 Mg Tablet) 650 mg PO Q6H PRN PRN Reason: Pain, Mild (Pain Scale 1-3) Dextrose (Dextrose 50 % 25 Gm/50 Ml Vial) 25 gm IVPUSH Q15M PRN; Protocol PRN Reason: per Hypoglycemia Standing Ord. Glucose (Glucose Gel 15 Gm Gel..Gram.) 15 gm PO Q15M PRN; Protocol PRN Reason: per Hypoglycemia Standing Ord. Vancomycin HCl 1,250 mg/ (Sodium Chloride) 250 mls @ 166.667 mls/hr IV Q12H [facility] Last Infusion: 02/15/21 22:15 Dose: Infused Documented by: Insulin Human Lispro (Insulin Lispro 100 Unit/Ml 3 Ml Vial) 0 unit SUBCUT QIDACHS [facility]; Protocol Last Admin: 02/15/21 21:08 Dose: 6 unit Documented by: Melatonin (Melatonin 3 Mg Tablet) 6 mg PO BEDTIME PRN PRN Reason: Insomnia Oxycodone HCl (Oxycodone Hcl Immed Release 5 Mg Tablet) 5 mg PO Q6H PRN PRN Reason: Pain, Severe (Pain Scale 7-10) Pharmacy Consult (Consult Rx Vancomycin Dosing) 1 each MISCELLANE DAILY PRN PRN Reason: Consult order Sodium Chloride (0.9 % Sodium Chloride Flush 3 Ml Syringe) 3 ml IVFLUSH QSHIFT [facility] Last Admin: 02/15/21 15:29 Dose: Not Given Documented by: Home Medications Medication Instructions Recorded Confirmed Last Taken Type dulaglutide 1.5 mg/0.5 mL 1.5 mg SUBCUT FR@1000 02/15/21 02/15/21 Unknown History subcutaneous pen injector (Trulicity) finasteride 5 mg tablet 5 mg PO DAILY 02/15/21 02/15/21 Unknown History metformin 500 mg tablet 1,000 mg PO BIDWM 02/15/21 02/15/21 Unknown History multivitamin 1 tab PO DAILY 02/15/21 02/15/21 Unknown History Physical Exam Vital Signs: Vital Signs: Last Vital Signs Temp 98 F 02/15/21 19:30 Pulse 100 02/15/21 19:30 Resp 18 02/15/21 19:30 BP 140/90 H 02/15/21 19:30 Pulse Ox 96 02/15/21 19:30 Body Mass Index 27.8 Const: General: cooperative Eyes: General: appearance normal, both eyes and all related structures Resp: Effort & Inspection: normal respiratory effort Cardio: Rate: regular rate Rhythm: regular rhythm GI: Palpation (GI): Firmness to palpation present (GI) and nontender Extrem: Other: right lateral foot redness and erythema Results Labs CBC & Chem 7: 02/15/21 05:30 02/15/21 05:30 Labs: Short CBC 02/15/21 Range/Units 05:30 WBC 16.8 H (4.8-10.8) X10*3/uL Hgb 14.7 (14.0-18.0) g/dl Hct 43.2 (42.0-52.0) % Plt Count 205 (160-400) X10*3/uL BMP 02/15/21 05:30 Sodium 135 Potassium 4.0 Chloride 100 Carbon Dioxide 26 BUN 13 Creatinine 0.91 Calcium 9.0 D Assessment and Plan (1) Diabetic foot infection: Status: Acute There is cellulitis and concern over osteomyelitis Gram negative and gram positive concern (2) Cellulitis: Qualifiers: Laterality: right Site of cellulitis: extremity Site of cellulitis of extremity: lower extremity Qualified Code(s): L03.115 - Cellulitis of right lower limb Status: Acute Would continue Vancomycin Check MRI evaluate abscess or osteomyeltis Vascular evaluation probably would be helpful
[2021-02-15 23:34] VITALS: BP 156/80; PULSE 104; RESP 15; TEMP 37.1; O2SAT 95
[2021-02-16] MEDS: 0.9 % Sodium Chloride Flush 3 ML SYRINGE IVFLUSH ×4 (00:05→21:43)
[2021-02-16 07:22] VITALS: BP 144/78; PULSE 97; RESP 18; TEMP 37; O2SAT 98
[2021-02-16 07:43] LABS: Glucose, Whole Blood 194 mg/dL (60-115)
[2021-02-16] MEDS: Insulin Lispro 100 UNIT/ML 3 ML VIAL SUBCUT ×4 (09:08→21:44)
[2021-02-16] MEDS: levoFLOXacin 750 MG TABLET PO (09:10)
[2021-02-16] MEDS: vancomycin HCL 1,250 MG in 0.9 % Sodium Chloride 250 ML 166.67 MG IV ×2 (09:29→21:43)
--- NOTE | 2021-02-16 10:17 | P.PNIM_ITS ---
Subjective Subjective Date of Service: 02/16/21 Interval History: Seen in f/u for Cellulitis of the foot, diabetic foot ulcer Review of Systems Gen: no fever Resp: no sob, no cough CV: no chest, no FOOTE, no leg edema GI: No n/v, no abd pain Neuro: No confusion Skin: persitent redness of the foot Physical Exam Vital Signs: Vital Signs: Last Vital Signs Temp 98.6 F 02/16/21 07:22 Pulse 97 02/16/21 07:22 Resp 18 02/16/21 07:22 BP 144/78 H 02/16/21 07:22 Pulse Ox 98 02/16/21 07:22 Body Mass Index 27.8 Const: Other: General: AO X 3, no acute distress Resp: CTA bilateral CVS: S1,S2,RRR GI: +BS, NT, no distention Skin: 02/15 02/16 Neuro: motor grossly intact Psych: appropriate affect Objective Data Active Medications Acetaminophen (Acetaminophen 325 Mg Tablet) 650 mg PO Q6H PRN PRN Reason: Pain, Mild (Pain Scale 1-3) Dextrose (Dextrose 50 % 25 Gm/50 Ml Vial) 25 gm IVPUSH Q15M PRN; Protocol PRN Reason: per Hypoglycemia Standing Ord. Glucose (Glucose Gel 15 Gm Gel..Gram.) 15 gm PO Q15M PRN; Protocol PRN Reason: per Hypoglycemia Standing Ord. Vancomycin HCl 1,250 mg/ (Sodium Chloride) 250 mls @ 166.667 mls/hr IV Q12H [facility] Last Admin: 02/16/21 09:29 Dose: 166.67 mls/hr Documented by: MARYELLEN Insulin Human Lispro (Insulin Lispro 100 Unit/Ml 3 Ml Vial) 0 unit SUBCUT QIDACHS [facility]; Protocol Last Admin: 02/16/21 09:08 Dose: 2 unit Documented by: MARYELLEN Levofloxacin (Levofloxacin 750 Mg Tablet) 750 mg PO Q24H [facility] Last Admin: 02/16/21 09:10 Dose: 750 mg Documented by: MARYELLEN Melatonin (Melatonin 3 Mg Tablet) 6 mg PO BEDTIME PRN PRN Reason: Insomnia Oxycodone HCl (Oxycodone Hcl Immed Release 5 Mg Tablet) 5 mg PO Q6H PRN PRN Reason: Pain, Severe (Pain Scale 7-10) Pharmacy Consult (Consult Rx Vancomycin Dosing) 1 each MISCELLANE DAILY PRN PRN Reason: Consult order Sodium Chloride (0.9 % Sodium Chloride Flush 3 Ml Syringe) 3 ml IVFLUSH QSDCFT [facility] Last Admin: 02/16/21 09:09 Dose: 3 ml Documented by: MARYELLEN Labs CBC & Chem 7: 02/15/21 05:30 02/15/21 05:30 Labs: Laboratory Results - last 24 hr 02/15/21 02/15/21 02/15/21 12:06 19:27 20:53 POC Glucose 196 H 262 H 263 H 02/16/21 07:19 POC Glucose 194 H Microbiology Microbiology Results: Microbiology 02/15/21 05:30 Blood Culture - Preliminary Blood - Venous No growth after 24 hours. 02/15/21 05:30 Blood Culture - Preliminary Blood - Venous No growth after 24 hours. Assessment and Plan (1) Sepsis: Status: Acute (2) Diabetic foot infection: Status: Acute (3) Cellulitis: Status: Acute Assessment and Plan: 51 year old man with diabetes here with cellulitis and wound infection from a blister and has sepsis with elevated wbc and tachycardia Diabetes infected woud/cellulitis, sepsis -continue Vanco and add Levaquin, surgery following, ID to advise MRI of the foot to rule osteo, requested Diabetes--continue Metformin and Trulicity, SSI, diabetic diet lovenox for DVT proph Quality Stroke Does the patient have a stroke diagnosis?: No VTE Prior VTE?: No VTE Risk Level:: Medical - moderate - high VTE Device Contraindication: Treatment Not Indicated VTE Drug Contraindication: N/A - Med Ordered
--- NOTE | 2021-02-16 11:26 | MHC.CM.PN ---
Met with patient. he lives with his brother, is independent at baseline. Car in parking lot and will drive himself home or brother can drive if he is not able to at time of dc. He has PCP at [facility]. He will call to schedule f/u appointment. Assited patient in completing HCP, he chose his brother, Pedro. Gave patient original and copies and placed a copy in the chart. Anticiate no needs on dc
[2021-02-16 12:07] LABS: Glucose, Whole Blood 335 mg/dL (60-115)
[2021-02-16 16:00] VITALS: BP 139/74; PULSE 96; RESP 16; TEMP 37.3; O2SAT 96
[2021-02-16 16:38] LABS: Glucose, Whole Blood 252 mg/dL (60-115)
[2021-02-16] MEDS: oxyCODONE HCl Immed Release 5 MG TABLET PO (17:27)
[2021-02-16 19:47] LABS: Creatinine Clr Calc Pharmacy 94.4; Estimated Glomerular Filt Rate > 60
[2021-02-16 19:58] LABS: Vancomycin Trough 8.8 mcg/mL (10.0-20.0)
[2021-02-16 20:24] LABS: Glucose, Whole Blood 249 mg/dL (60-115)
[2021-02-16 23:26] VITALS: BP 138/80; PULSE 95; RESP 18; TEMP 37.1; O2SAT 95
[2021-02-17 07:14] VITALS: BP 140/84; PULSE 99; RESP 18; TEMP 37.3; O2SAT 97
[2021-02-17 07:55] LABS: Glucose, Whole Blood 216 mg/dL (60-115)
[2021-02-17] MEDS: Insulin Lispro 100 UNIT/ML 3 ML VIAL SUBCUT ×4 (08:09→21:17)
[2021-02-17 08:30] LABS: Creatinine Clr Calc Pharmacy 128.7; Estimated Glomerular Filt Rate > 60
[2021-02-17] MEDS: vancomycin HCL 1,500 MG in 0.9 % Sodium Chloride 500 ML 333.33 MG IV ×2 (09:46→21:16)
[2021-02-17] MEDS: 0.9 % Sodium Chloride Flush 3 ML SYRINGE IVFLUSH ×3 (09:46→23:46)
[2021-02-17] MEDS: levoFLOXacin 750 MG TABLET PO (09:49)
--- NOTE | 2021-02-17 10:44 | HO.PM.IMPN ---
Subjective Subjective Date of Service: 02/17/21 Interval History: Seen in f/u for Cellulitis of the foot, diabetic foot ulcer--no significant change, MRI not yet done Review of Systems Gen: no fever Resp: no sob, no cough CV: no chest, no FOOTE, no leg edema GI: No n/v, no abd pain Neuro: No confusion Skin: persitent redness of the foot Physical Exam Vital Signs: Vital Signs: Last Vital Signs Temp 99.1 F 02/17/21 07:14 Pulse 99 02/17/21 07:14 Resp 18 02/17/21 07:14 BP 140/84 H 02/17/21 07:14 Pulse Ox 97 02/17/21 07:14 Body Mass Index 27.8 Const: Other: General: AO X 3, no acute distress Resp: CTA bilateral CVS: S1,S2,RRR GI: +BS, NT, no distention Skin: 02/15 02/16 essentially no chage on 02/17 Neuro: motor grossly intact Psych: appropriate affect Objective Data Active Medications Acetaminophen (Acetaminophen 325 Mg Tablet) 650 mg PO Q6H PRN PRN Reason: Pain, Mild (Pain Scale 1-3) Dextrose (Dextrose 50 % 25 Gm/50 Ml Vial) 25 gm IVPUSH Q15M PRN; Protocol PRN Reason: per Hypoglycemia Standing Ord. Glucose (Glucose Gel 15 Gm Gel..Gram.) 15 gm PO Q15M PRN; Protocol PRN Reason: per Hypoglycemia Standing Ord. Vancomycin HCl 1,500 mg/ (Sodium Chloride) 500 mls @ 333.333 mls/hr IV Q12H [facility] Last Admin: 02/17/21 09:46 Dose: 333.33 mls/hr Documented by: MARYELLEN Insulin Human Lispro (Insulin Lispro 100 Unit/Ml 3 Ml Vial) 0 unit SUBCUT QIDACHS [facility]; Protocol Last Admin: 02/17/21 08:09 Dose: 4 unit Documented by: MARYELLEN Levofloxacin (Levofloxacin 750 Mg Tablet) 750 mg PO Q24H [facility] Last Admin: 02/17/21 09:49 Dose: 750 mg Documented by: MARYELLEN Melatonin (Melatonin 3 Mg Tablet) 6 mg PO BEDTIME PRN PRN Reason: Insomnia Oxycodone HCl (Oxycodone Hcl Immed Release 5 Mg Tablet) 5 mg PO Q6H PRN PRN Reason: Pain, Severe (Pain Scale 7-10) Last Admin: 02/16/21 17:27 Dose: 5 mg Documented by: MARYELLEN Pharmacy Consult (Consult Rx Vancomycin Dosing) 1 each MISCELLANE DAILY PRN PRN Reason: Consult order Sodium Chloride (0.9 % Sodium Chloride Flush 3 Ml Syringe) 3 ml IVFLUSH [facility] Last Admin: 02/17/21 09:46 Dose: 3 ml Documented by: MARYELLEN Labs CBC & Chem 7: 02/15/21 05:30 02/17/21 07:31 Labs: Laboratory Results - last 24 hr 02/16/21 02/16/21 02/16/21 11:57 16:22 19:25 Estim Creat Clear Calc Estimated GFR POC Glucose 335 H 252 H Vancomycin Trough 8.8 L 02/16/21 02/16/21 02/17/21 19:25 20:21 07:18 Estim Creat Clear Calc 94.4 Estimated GFR > 60 POC Glucose 249 H 216 H Vancomycin Trough 02/17/21 07:31 Estim Creat Clear Calc 128.7 Estimated GFR > 60 POC Glucose Vancomycin Trough Microbiology Microbiology Results: Microbiology 02/15/21 05:30 Blood Culture - Preliminary Blood - Venous No growth after 48 hours. 02/15/21 05:30 Blood Culture - Preliminary Blood - Venous No growth after 48 hours. Assessment and Plan (1) Diabetic foot infection: Status: Acute (2) Cellulitis: Status: Acute Assessment and Plan: 51 year old man with diabetes here with cellulitis and wound infection from a blister and has sepsis with elevated wbc and tachycardia Diabetes infected woud/cellulitis, sepsis--sepsis resolved -continue Vanco and Levaquin, surgery following, ID advises MRI of the foot to rule osteo, not yet done, oxycodone for pain Diabetes--continue Metformin and Trulicity, ssi, add glipizide or lantus if persitent high, check A1C lovenox for DVT proph Quality Stroke Does the patient have a stroke diagnosis?: No VTE Prior VTE?: No VTE Risk Level:: Medical - moderate - high VTE Device Contraindication: Treatment Not Indicated VTE Drug Contraindication: N/A - Med Ordered
[2021-02-17 11:36] LABS: Glucose, Whole Blood 271 mg/dL (60-115)
[2021-02-17] MEDS: Multivitamin TABLET 1 TAB PO (12:16)
[2021-02-17] MEDS: metFORMIN HCl 1,000 MG TABLET 1000 MG PO ×2 (12:16→16:36)
[2021-02-17] MEDS: Finasteride 5 MG TABLET PO (12:17)
--- NOTE | 2021-02-17 12:38 | HE.PHANOTE ---
Patient brought in medications. Finasteride was input into home medication list wrong by the nurse who completed the med rec. RX bottle reports take 1/4 of a tablet daily. Since finasteride is cytotoxic, the tablet can not be cut in the hospital. Spoke with Dr. Dias, who wants to keep the dose at 5 mg daily Heather Turpin, DenizD
[2021-02-17 15:38] VITALS: BP 144/68; PULSE 101; RESP 20; TEMP 36.9; O2SAT 96
[2021-02-17 16:18] LABS: Glucose, Whole Blood 253 mg/dL (60-115)
[2021-02-17 19:52] LABS: Glucose, Whole Blood 323 mg/dL (60-115)
[2021-02-17 23:39] VITALS: BP 167/86; PULSE 90; RESP 17; TEMP 36.4; O2SAT 94
--- NOTE | 2021-02-18 00:17 | P.PNGS_ITS ---
Subjective Subjective Date of Service: 02/18/21 Interval history: feels ok no new hcanges. 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 Physical Exam Vital Signs: Vital Signs: Last Vital Signs Temp 97.6 F 02/17/21 23:39 Pulse 90 02/17/21 23:39 Resp 17 02/17/21 23:39 BP 167/86 H 02/17/21 23:39 Pulse Ox 94 02/17/21 23:39 Body Mass Index 27.8 Skin: Other: erythema nonblanching - stable improving cellultis the wound debrided a little - looks like its drying out- cont with betadine and silver alginate Objective Data Active Medications Acetaminophen (Acetaminophen 325 Mg Tablet) 650 mg PO Q6H PRN PRN Reason: Pain, Mild (Pain Scale 1-3) Cyclobenzaprine HCl (Cyclobenzaprine Hcl 10 Mg Tablet) 10 mg PO TID PRN PRN Reason: muscle spasm Dextrose (Dextrose 50 % 25 Gm/50 Ml Vial) 25 gm IVPUSH Q15M PRN; Protocol PRN Reason: per Hypoglycemia Standing Ord. Finasteride (Finasteride 5 Mg Tablet) 5 mg PO DAILY [facility] Last Admin: 02/17/21 12:17 Dose: 5 mg Documented by: MARYELLEN Glucose (Glucose Gel 15 Gm Gel..Gram.) 15 gm PO Q15M PRN; Protocol PRN Reason: per Hypoglycemia Standing Ord. Vancomycin HCl 1,500 mg/ (Sodium Chloride) 500 mls @ 333.333 mls/hr IV Q12H [facility] Last Infusion: 02/17/21 22:54 Dose: 0 mls/hr Documented by: NICKIE Insulin Human Lispro (Insulin Lispro 100 Unit/Ml 3 Ml Vial) 0 unit SUBCUT QIDACHS [facility]; Protocol Last Admin: 02/17/21 21:17 Dose: 8 unit Documented by: NICKIE Levofloxacin (Levofloxacin 750 Mg Tablet) 750 mg PO Q24H [facility] Last Admin: 02/17/21 09:49 Dose: 750 mg Documented by: MARYELLEN Melatonin (Melatonin 3 Mg Tablet) 6 mg PO BEDTIME PRN PRN Reason: Insomnia Metformin HCl (Metformin Hcl 1,000 Mg Tablet) 1,000 mg PO BIDWM [facility] Last Admin: 02/17/21 16:36 Dose: 1,000 mg Documented by: MARYELLEN Multivitamins/Vitamin C (Multivitamin Tablet) 1 tab PO DAILY [facility] Last Admin: 02/17/21 12:16 Dose: 1 tab Documented by: MARYELLEN Non-Formulary Medication (Hyoscyamine Sulfate) 0.125 mg PO QID PRN PRN Reason: dyspepsia Oxycodone HCl (Oxycodone Hcl Immed Release 5 Mg Tablet) 5 mg PO Q6H PRN PRN Reason: Pain, Severe (Pain Scale 7-10) Last Admin: 02/16/21 17:27 Dose: 5 mg Documented by: MARYELLEN Pharmacy Consult (Consult Rx Vancomycin Dosing) 1 each MISCELLANE DAILY PRN PRN Reason: Consult order Sodium Chloride (0.9 % Sodium Chloride Flush 3 Ml Syringe) 3 ml IVFLUSH QSHIFT [facility] Last Admin: 02/17/21 23:46 Dose: 3 ml Documented by: RAFAEL Labs CBC & Chem 7: 02/15/21 05:30 02/17/21 07:31 Labs: Laboratory Results - last 24 hr 02/17/21 02/17/21 02/17/21 07:18 07:31 11:06 Estim Creat Clear Calc 128.7 Estimated GFR > 60 POC Glucose 216 H 271 H 02/17/21 02/17/21 16:15 19:44 Estim Creat Clear Calc Estimated GFR POC Glucose 253 H 323 H Microbiology Microbiology Results: Microbiology 02/15/21 05:30 Blood Culture - Preliminary Blood - Venous No growth after 48 hours. 02/15/21 05:30 Blood Culture - Preliminary Blood - Venous No growth after 48 hours. Procedures Date of Service Date of Service: 02/17/21 Progress Note: A&P Assessment and plan (1) Diabetic foot infection: Status: Acute Assessment and Plan: diabetic foot infection improving - cont with dressings and have him fu in wound care clinic as outpt antibx as per med team - iv to po tight glucose control Fall Risk Details Current Medications: Current Medications Acetaminophen (Acetaminophen 325 Mg Tablet) 650 mg PO Q6H PRN PRN Reason: Pain, Mild (Pain Scale 1-3) Cyclobenzaprine HCl (Cyclobenzaprine Hcl 10 Mg Tablet) 10 mg PO TID PRN PRN Reason: muscle spasm Dextrose (Dextrose 50 % 25 Gm/50 Ml Vial) 25 gm IVPUSH Q15M PRN; Protocol PRN Reason: per Hypoglycemia Standing Ord. Finasteride (Finasteride 5 Mg Tablet) 5 mg PO DAILY [facility] Last Admin: 02/17/21 12:17 Dose: 5 mg Documented by: Glucose (Glucose Gel 15 Gm Gel..Gram.) 15 gm PO Q15M PRN; Protocol PRN Reason: per Hypoglycemia Standing Ord. Vancomycin HCl 1,500 mg/ (Sodium Chloride) 500 mls @ 333.333 mls/hr IV Q12H [facility] Last Infusion: 02/17/21 22:54 Dose: Infused Documented by: Insulin Human Lispro (Insulin Lispro 100 Unit/Ml 3 Ml Vial) 0 unit SUBCUT QIDACHS [facility]; Protocol Last Admin: 02/17/21 21:17 Dose: 8 unit Documented by: Levofloxacin (Levofloxacin 750 Mg Tablet) 750 mg PO Q24H [facility] Last Admin: 02/17/21 09:49 Dose: 750 mg Documented by: Melatonin (Melatonin 3 Mg Tablet) 6 mg PO BEDTIME PRN PRN Reason: Insomnia Metformin HCl (Metformin Hcl 1,000 Mg Tablet) 1,000 mg PO BIDWM [facility] Last Admin: 02/17/21 16:36 Dose: 1,000 mg Documented by: Multivitamins/Vitamin C (Multivitamin Tablet) 1 tab PO DAILY [facility] Last Admin: 02/17/21 12:16 Dose: 1 tab Documented by: Non-Formulary Medication (Hyoscyamine Sulfate) 0.125 mg PO QID PRN PRN Reason: dyspepsia Oxycodone HCl (Oxycodone Hcl Immed Release 5 Mg Tablet) 5 mg PO Q6H PRN PRN Reason: Pain, Severe (Pain Scale 7-10) Last Admin: 02/16/21 17:27 Dose: 5 mg Documented by: Pharmacy Consult (Consult Rx Vancomycin Dosing) 1 each MISCELLANE DAILY PRN PRN Reason: Consult order Sodium Chloride (0.9 % Sodium Chloride Flush 3 Ml Syringe) [facility] Last Admin: 02/17/21 23:46 Dose: 3 ml Documented by: Time Spent With Patient Time: Total time spent is greater than 50% in coordination of care (as documented) at patient's floor/unit and/or counseling patient: Time with patient: 25 - 35 minutes Quality Stroke Does the patient have a stroke diagnosis?: No VTE Prior VTE?: No VTE Risk Level:: Medical - moderate - high VTE Device Contraindication: Treatment Not Indicated VTE Drug Contraindication: N/A - Med Ordered
[2021-02-18 04:57] LABS: Creatinine Clr Calc Pharmacy 107.2; Estimated Glomerular Filt Rate > 60
[2021-02-18 07:31] LABS: Glucose, Whole Blood 215 mg/dL (60-115)
[2021-02-18 08:00] VITALS: BP 137/78; PULSE 95; RESP 18; TEMP 36.6; O2SAT 96
[2021-02-18] MEDS: Multivitamin TABLET 1 TAB PO (08:08)
[2021-02-18] MEDS: levoFLOXacin 750 MG TABLET PO (08:08)
[2021-02-18] MEDS: Insulin Lispro 100 UNIT/ML 3 ML VIAL SUBCUT ×3 (08:08→21:08)
[2021-02-18] MEDS: Finasteride 5 MG TABLET PO (08:08)
[2021-02-18] MEDS: metFORMIN HCl 1,000 MG TABLET 1000 MG PO (08:08)
[2021-02-18] MEDS: 0.9 % Sodium Chloride Flush 3 ML SYRINGE IVFLUSH ×2 (08:09→15:54)
[2021-02-18] MEDS: vancomycin HCL 1,500 MG in 0.9 % Sodium Chloride 500 ML 333.33 MG IV (08:09)
--- NOTE | 2021-02-18 10:48 | HO.PM.IMPN ---
Subjective Subjective Date of Service: 02/18/21 Interval History: Seen in f/u for Cellulitis of the foot, diabetic foot ulcer--MRI done, result pending, no significant pain Review of Systems Gen: no fever Resp: no sob, no cough CV: no chest, no FOOTE, no leg edema GI: No n/v, no abd pain Neuro: No confusion Skin: persitent redness of the foot Physical Exam Vital Signs: Vital Signs: Last Vital Signs Temp 97.8 F 02/18/21 07:11 Pulse 95 02/18/21 07:11 Resp 17 02/18/21 07:11 BP 137/78 02/18/21 07:11 Pulse Ox 96 02/18/21 07:11 Body Mass Index 27.8 Const: Other: General: AO X 3, no acute distress Resp: CTA bilateral CVS: S1,S2,RRR GI: +BS, NT, no distention Skin: changed, see prior picture Neuro: motor grossly intact Psych: appropriate affect Objective Data Active Medications Acetaminophen (Acetaminophen 325 Mg Tablet) 650 mg PO Q6H PRN PRN Reason: Pain, Mild (Pain Scale 1-3) Cyclobenzaprine HCl (Cyclobenzaprine Hcl 10 Mg Tablet) 10 mg PO TID PRN PRN Reason: muscle spasm Dextrose (Dextrose 50 % 25 Gm/50 Ml Vial) 25 gm IVPUSH Q15M PRN; Protocol PRN Reason: per Hypoglycemia Standing Ord. Finasteride (Finasteride 5 Mg Tablet) 5 mg PO DAILY [facility] Last Admin: 02/18/21 08:08 Dose: 5 mg Documented by: LONA Glucose (Glucose Gel 15 Gm Gel..Gram.) 15 gm PO Q15M PRN; Protocol PRN Reason: per Hypoglycemia Standing Ord. Vancomycin HCl 1,500 mg/ (Sodium Chloride) 500 mls @ 333.333 mls/hr IV Q12H [facility] Last Infusion: 02/18/21 08:26 Dose: 0 mls/hr Documented by: LONA Insulin Human Lispro (Insulin Lispro 100 Unit/Ml 3 Ml Vial) 0 unit SUBCUT QIDACHS [facility]; Protocol Last Admin: 02/18/21 08:08 Dose: 4 unit Documented by: LONA Levofloxacin (Levofloxacin 750 Mg Tablet) 750 mg PO Q24H [facility] Last Admin: 02/18/21 08:08 Dose: 750 mg Documented by: LONA Melatonin (Melatonin 3 Mg Tablet) 6 mg PO BEDTIME PRN PRN Reason: Insomnia Metformin HCl (Metformin Hcl 1,000 Mg Tablet) 1,000 mg PO BIDWM [facility] Last Admin: 02/18/21 08:08 Dose: 1,000 mg Documented by: LONA Multivitamins/Vitamin C (Multivitamin Tablet) 1 tab PO DAILY [facility] Last Admin: 02/18/21 08:08 Dose: 1 tab Documented by: LONA Non-Formulary Medication (Hyoscyamine Sulfate) 0.125 mg PO QID PRN PRN Reason: dyspepsia Oxycodone HCl (Oxycodone Hcl Immed Release 5 Mg Tablet) 5 mg PO Q6H PRN PRN Reason: Pain, Severe (Pain Scale 7-10) Last Admin: 02/16/21 17:27 Dose: 5 mg Documented by: MARYELLEN Pharmacy Consult (Consult Rx Vancomycin Dosing) 1 each MISCELLANE DAILY PRN PRN Reason: Consult order Sodium Chloride (0.9 % Sodium Chloride Flush 3 Ml Syringe) 3 ml IVFLUSH QSHIFT [facility] Last Admin: 02/18/21 08:09 Dose: 3 ml Documented by: LONA Labs CBC & Chem 7: 02/15/21 05:30 02/18/21 04:19 Labs: Laboratory Results - last 24 hr 02/17/21 02/17/21 02/17/21 11:06 16:15 19:44 Estim Creat Clear Calc Estimated GFR POC Glucose 271 H 253 H 323 H 02/18/21 02/18/21 04:19 07:14 Estim Creat Clear Calc 107.2 Estimated GFR > 60 POC Glucose 215 H Microbiology Microbiology Results: Microbiology 02/15/21 05:30 Blood Culture - Preliminary Blood - Venous No growth after 48 hours. 02/15/21 05:30 Blood Culture - Preliminary Blood - Venous No growth after 48 hours. Assessment and Plan (1) Sepsis: Status: Acute (2) Diabetic foot infection: Status: Acute Assessment and Plan: 51 year old man with diabetes here with cellulitis and wound infection from a blister and has sepsis with elevated wbc and tachycardia Diabetes infected woud/cellulitis, sepsis--sepsis resolved -continue Vanco and Levaquin, surgery following, MRI done to rule osteomylits, not yet done, oxycodone for pain, vascular consult Diabetes--continue Metformin and Trulicity, ssi, add glipizide or lantus if persitent high, lovenox for DVT prophylaxis Quality Stroke Does the patient have a stroke diagnosis?: No VTE Prior VTE?: No VTE Risk Level:: Medical - moderate - high VTE Device Contraindication: Treatment Not Indicated VTE Drug Contraindication: N/A - Med Ordered
[2021-02-18 11:27] LABS: Glucose, Whole Blood 227 mg/dL (60-115)
[2021-02-18 11:40] VITALS: BP 146/85; PULSE 101; RESP 18; TEMP 36.9; O2SAT 97
--- NOTE | 2021-02-18 14:25 | P.CONGS_ITS ---
History of Present Illness Consult details Consult date: 02/18/21 Reason for consult: wound care Narrative: Very pleasant 51-year-old gentleman presents to the hospital for a right foot diabetic ulcer. Of note he has been a long-standing diabetic for nearly 20 years. He was at a younger age significantly overweight he has since lost a significant amount but still is diabetic and is dependent on metformin. He had developed a blister on the lateral aspect of his right foot. He had cared for at at home. It progressively got infected and was much worse. He now presents the hospital for evaluation Review of Systems Review of Systems: Yes all other systems are reviewed and are negative Constitutional: Constitutional: Reports no additional constitutional complaints ENT: Reports Normal hearing present Cardiovascular: Cardiovascular: Denies chest pain, Denies chest pain at rest, Denies chest pain with activity and Denies pedal edema Respiratory: Respiratory: Denies cough Gastrointestinal: Gastrointestinal: Denies abdominal pain Musculoskeletal: Musculoskeletal: Denies abnormal gait, Denies muscle cramps and Denies radiating pain into limb Integumentary/Breasts: Skin/Breast: Denies skin ulcer and Denies wounds Neurologic: Reports Normal hearing present and Denies abnormal gait Psychiatric: Psychiatric: Reports no additional psychiatric complaints PMFSH Past Medical History Medical History Diabetes GERD (gastroesophageal reflux disease) Functional capacity: independent ambulation Family History Family history: reviewed and not pertinent Social History Social History Household Members: Family Housing: House Do you presently have visiting nurse or other home services: No Alcohol intake: never Patient Tobacco Use Status: Never used Tobacco service: No Current occupational status: unemployed Meds Allergies Allergy/AdvReac Type Severity Reaction Status Date / Time No Known Allergies Allergy Verified 12/28/20 22:11 Active Medications: Current Medications Acetaminophen (Acetaminophen 325 Mg Tablet) 650 mg PO Q6H PRN PRN Reason: Pain, Mild (Pain Scale 1-3) Cyclobenzaprine HCl (Cyclobenzaprine Hcl 10 Mg Tablet) 10 mg PO TID PRN PRN Reason: muscle spasm Dextrose (Dextrose 50 % 25 Gm/50 Ml Vial) 25 gm IVPUSH Q15M PRN; Protocol PRN Reason: per Hypoglycemia Standing Ord. Finasteride (Finasteride 5 Mg Tablet) 5 mg PO DAILY [facility] Last Admin: 02/18/21 08:08 Dose: 5 mg Documented by: Glucose (Glucose Gel 15 Gm Gel..Gram.) 15 gm PO Q15M PRN; Protocol PRN Reason: per Hypoglycemia Standing Ord. Vancomycin HCl 1,500 mg/ (Sodium Chloride) 500 mls @ 333.333 mls/hr IV Q12H [facility] Last Infusion: 02/18/21 13:36 Dose: Infused Documented by: Insulin Human Lispro (Insulin Lispro 100 Unit/Ml 3 Ml Vial) 0 unit SUBCUT QIDACHS [facility]; Protocol Last Admin: 02/18/21 11:48 Dose: 4 unit Documented by: Levofloxacin (Levofloxacin 750 Mg Tablet) 750 mg PO Q24H [facility] Last Admin: 02/18/21 08:08 Dose: 750 mg Documented by: Melatonin (Melatonin 3 Mg Tablet) 6 mg PO BEDTIME PRN PRN Reason: Insomnia Metformin HCl (Metformin Hcl 1,000 Mg Tablet) 1,000 mg PO BIDWM [facility] Last Admin: 02/18/21 08:08 Dose: 1,000 mg Documented by: Multivitamins/Vitamin C (Multivitamin Tablet) 1 tab PO DAILY [facility] Last Admin: 02/18/21 08:08 Dose: 1 tab Documented by: Non-Formulary Medication (Hyoscyamine Sulfate) 0.125 mg PO QID PRN PRN Reason: dyspepsia Oxycodone HCl (Oxycodone Hcl Immed Release 5 Mg Tablet) 5 mg PO Q6H PRN PRN Reason: Pain, Severe (Pain Scale 7-10) Last Admin: 02/16/21 17:27 Dose: 5 mg Documented by: Pharmacy Consult (Consult Rx Vancomycin Dosing) 1 each MISCELLANE DAILY PRN PRN Reason: Consult order Sodium Chloride (0.9 % Sodium Chloride Flush 3 Ml Syringe) 3 ml IVFLUSH QSHIFT [facility] Last Admin: 02/18/21 08:09 Dose: 3 ml Documented by: Home Medications Medication Instructions Recorded Confirmed Last Taken Type dulaglutide 1.5 mg/0.5 mL 1.5 mg SUBCUT FR@1000 02/15/21 02/15/21 Unknown History subcutaneous pen injector (Trulicity) finasteride 5 mg tablet 1.25 mg PO DAILY 02/15/21 02/17/21 Unknown History metformin 500 mg tablet 1,000 mg PO BIDWM 02/15/21 02/15/21 Unknown History multivitamin 1 tab PO DAILY 02/15/21 02/15/21 Unknown History Physical Exam Vital Signs: Vital Signs: Last Vital Signs Temp 98.5 F 02/18/21 11:40 Pulse 101 H 02/18/21 11:40 Resp 18 02/18/21 11:40 BP 146/85 H 02/18/21 11:40 Pulse Ox 97 02/18/21 11:40 Body Mass Index 27.8 Const: General: cooperative, healthy appearing and comfortable Orientation/consciousness: oriented to person, oriented to place and oriented to time HENMT: Head: Yes normal to inspection Neck: Neck: Yes normal visual inspection Carotids: no bruits Chest: Chest palpation & inspection: normal inspection of the chest Resp: Effort & Inspection: normal respiratory effort and able to speak in complete sentences Auscultation: clear to auscultation bilaterally, no crackles, no rales, no rhonchi and no wheezes Cardio: Rate: regular rate Rhythm: regular rhythm Heart sounds: S1 normal heart sound present and S2 normal heart sound present Bruits: no carotid bruits Peripheral pulses: Peripheral pulses 2+ throughout GI: Inspection: Yes normal to inspection Skin: Wounds: wounds noted (Right lateral foot with surrounding cellulitis.) Hair: normal Neuro: General: oriented to person, oriented to place and oriented to time Cranial nerves: Yes CN's II-XII intact bilaterally and Yes Normal hearing present Cognition (Neuro): normal cognition Motor exam (neuro): 5/5 motor strength present throughout Extrem: Other: venous exam: No significant superficial varicosities or spider telangiectasias, minimal edema General: No clubbing, No cyanosis and No edema Psych: Appearance: grossly normal Mental Status: mental status grossly normal Speech and movement: Normal speech and movement present Results Labs Result diagrams: 02/15/21 05:30 02/18/21 04:19 Labs: Abnormal lab results 02/17/21 02/17/21 02/18/21 Range/Units 16:15 19:44 07:14 POC Glucose 253 H 323 H 215 H (60-115) mg/dL 02/18/21 Range/Units 11:20 POC Glucose 227 H (60-115) mg/dL [facility] 02/18/21 04:19 Creatinine 0.96 All other labs normal. Assessment and Plan (1) Diabetic foot infection: Status: Acute In short patient has right foot diabetic ulcer. Surrounding cellulitis appears to be improving according to the patient. He does have palpable pulses and I do not suspect arterial insufficiency. Await results of MRI. Would continue with local wound care and antibiotics. These findings were discussed with the patient and also I did inform him that he may require a longer duration of antibiotics if needed. Thank you for allowing us to assist in his care. If there are any questions or concerns please do not hesitate to contact us. Procedures Date of Service Date of Service: 02/18/21
--- NOTE | 2021-02-18 15:16 | MHC.CLN ---
NUTRITION INCREASED DIETARY CALORIES TO DIABETIC 2000 KCAL.
[2021-02-18 15:18] VITALS: BP 159/80; PULSE 100; RESP 19; TEMP 37.2; O2SAT 98
[2021-02-18] MEDS: ondansetron HCL 4 MG/2 ML VIAL IVPUSH (15:54)
[2021-02-18 16:14] LABS: Glucose, Whole Blood 218 mg/dL (60-115)
[2021-02-18] MEDS: Omeprazole 20 MG CAPSULE.DR PO (18:22)
[2021-02-18] MEDS: Magnesium Hydrox/Alum Hydrox 30 ML ORAL.SUSP PO (18:23)
[2021-02-18 19:26] LABS: Vancomycin Trough 16.2 mcg/mL (10.0-20.0)
[2021-02-18 20:21] LABS: Glucose, Whole Blood 246 mg/dL (60-115)
[2021-02-18] MEDS: vancomycin HCL 1,500 MG in 0.9 % Sodium Chloride 500 ML 333.3 MG IV (21:09)
[2021-02-18 23:45] VITALS: BP 152/86; PULSE 99; RESP 17; TEMP 36.6; O2SAT 95
[2021-02-19] MEDS: 0.9 % Sodium Chloride Flush 3 ML SYRINGE IVFLUSH ×4 (00:19→20:45)
[2021-02-19 06:03] LABS: Estimated Glomerular Filt Rate > 60
[2021-02-19] MEDS: Omeprazole 20 MG CAPSULE.DR PO (06:42)
[2021-02-19 07:05] VITALS: BP 157/89; PULSE 93; RESP 16; TEMP 37.2; O2SAT 98
[2021-02-19 07:15] LABS: Glucose, Whole Blood 248 mg/dL (60-115)
[2021-02-19] MEDS: levoFLOXacin 750 MG TABLET PO (07:50)
[2021-02-19] MEDS: Finasteride 5 MG TABLET PO (07:50)
[2021-02-19] MEDS: metFORMIN HCl 1,000 MG TABLET 1000 MG PO ×2 (07:50→18:14)
[2021-02-19] MEDS: Multivitamin TABLET 1 TAB PO (07:50)
[2021-02-19] MEDS: Insulin Lispro 100 UNIT/ML 3 ML VIAL SUBCUT ×4 (07:50→20:45)
[2021-02-19] MEDS: oxyCODONE HCl Immed Release 5 MG TABLET PO ×2 (07:54→20:49)
[2021-02-19 08:03] LABS: Hematocrit 38.8 % (42.0-52.0); Hemoglobin 13.2 g/dl (14.0-18.0); Mean Corpuscular Hemoglobin 31.3 pg (27.0-33.0); Mean Corpuscular Volume 91.9 fL (80.0-98.0); Mean Platelet Volume 9.7 fL (9.4-12.4); Platelet Count 227 X10*3/uL (160-400); Red Blood Count 4.22 X10*6/uL (4.60-5.80); Red Cell Distribution Width 11.9 % (11.0-16.0); White Blood Count 13.9 X10*3/uL (4.8-10.8)
[2021-02-19] MEDS: vancomycin HCL 1,500 MG in 0.9 % Sodium Chloride 500 ML 333.3 MG IV (09:31)
--- NOTE | 2021-02-19 10:27 | PC.NURSE ---
Wound assessment completed today. Patient has a grade 1 diabetic ulcer on right 5th lateral toe. Silver alginate applied covered with gauze and roll gauze.
[2021-02-19 11:20] LABS: Glucose, Whole Blood 244 mg/dL (60-115)
[2021-02-19 15:47] VITALS: BP 155/90; PULSE 93; RESP 16; TEMP 37; O2SAT 97
--- NOTE | 2021-02-19 15:48 | HO.PM.IMPN ---
Subjective Subjective Date of Service: 02/19/21 Interval History: Foot cellulitis. Review of Systems foot Pain and discharge seems improving Denies any new complaint of chest pain or shortness of breath or abdominal pain or fever or chills or nausea or vomiting Denies any cough Denies any weakness or numbness. Physical Exam Vital Signs: Vital Signs: Last Vital Signs Temp 98.9 F 02/19/21 07:05 Pulse 93 02/19/21 07:05 Resp 16 02/19/21 07:05 BP 157/89 H 02/19/21 07:05 Pulse Ox 98 02/19/21 07:05 Body Mass Index 27.8 General: AO X 3, no acute distress Resp:? CTA bilateral CVS: S1,S2,RRR GI: +BS, NT, no distention Skin: changed, see prior picture Neuro:? motor grossly intact Psych: appropriate affect Objective Data Active Medications Acetaminophen (Acetaminophen 325 Mg Tablet) 650 mg PO Q6H PRN PRN Reason: Pain, Mild (Pain Scale 1-3) Cyclobenzaprine HCl (Cyclobenzaprine Hcl 10 Mg Tablet) 10 mg PO TID PRN PRN Reason: muscle spasm Dextrose (Dextrose 50 % 25 Gm/50 Ml Vial) 25 gm IVPUSH Q15M PRN; Protocol PRN Reason: per Hypoglycemia Standing Ord. Finasteride (Finasteride 5 Mg Tablet) 5 mg PO DAILY [facility] Last Admin: 02/19/21 07:50 Dose: 5 mg Documented by: MAEGAN Glucose (Glucose Gel 15 Gm Gel..Gram.) 15 gm PO Q15M PRN; Protocol PRN Reason: per Hypoglycemia Standing Ord. Vancomycin HCl 1,500 mg/ (Sodium Chloride) 500 mls @ 333.333 mls/hr IV Q12H [facility] Last Infusion: 02/19/21 11:12 Dose: 333.3 mls/hr Documented by: MAEGAN Insulin Human Lispro (Insulin Lispro 100 Unit/Ml 3 Ml Vial) 0 unit SUBCUT QIDACHS [facility]; Protocol Last Admin: 02/19/21 11:25 Dose: 4 unit Documented by: MAEGAN Levofloxacin (Levofloxacin 750 Mg Tablet) 750 mg PO Q24H [facility] Last Admin: 02/19/21 07:50 Dose: 750 mg Documented by: MAEGAN Melatonin (Melatonin 3 Mg Tablet) 6 mg PO BEDTIME PRN PRN Reason: Insomnia Metformin HCl (Metformin Hcl 1,000 Mg Tablet) 1,000 mg PO BIDWM [facility] Last Admin: 02/19/21 07:50 Dose: 1,000 mg Documented by: MAEGAN Multivitamins/Vitamin C (Multivitamin Tablet) 1 tab PO DAILY [facility] Last Admin: 02/19/21 07:50 Dose: 1 tab Documented by: MAEGAN Non-Formulary Medication (Hyoscyamine Sulfate) 0.125 mg PO QID PRN PRN Reason: dyspepsia Omeprazole (Omeprazole 20 Mg Capsule.Dr) 20 mg PO DAILY@0630 [facility] Last Admin: 02/19/21 06:42 Dose: 20 mg Documented by: RAFAEL Ondansetron HCl (Ondansetron Hcl 4 Mg/2 Ml Vial) 4 mg IVPUSH Q8H PRN PRN Reason: Nausea and Vomiting Last Admin: 02/18/21 15:54 Dose: 4 mg Documented by: BENJI Oxycodone HCl (Oxycodone Hcl Immed Release 5 Mg Tablet) 5 mg PO Q6H PRN PRN Reason: Pain, Severe (Pain Scale 7-10) Last Admin: 02/19/21 07:54 Dose: 5 mg Documented by: MAEGAN Pharmacy Consult (Consult Rx Vancomycin Dosing) 1 each MISCELLANE DAILY PRN PRN Reason: Consult order Sodium Chloride (0.9 % Sodium Chloride Flush 3 Ml Syringe) 3 ml IVFLUSH QSHIFT [facility] Last Admin: 02/19/21 09:32 Dose: 3 ml Documented by: MAEGAN Labs CBC & Chem 7: 02/19/21 05:18 02/19/21 05:18 Labs: Laboratory Results - last 24 hr 02/18/21 02/18/21 02/18/21 16:07 18:49 20:14 MCV MCH MCHC RDW Plt Count MPV Absolute Nucleated RBC Nucleated RBC % (auto) Estim Creat Clear Calc Estimated GFR POC Glucose 218 H 246 H Vancomycin Trough 16.2 02/19/21 02/19/21 02/19/21 05:18 05:18 07:10 MCV 91.9 MCH 31.3 MCHC 34.0 RDW 11.9 Plt Count 227 MPV 9.7 Absolute Nucleated RBC 0.000 Nucleated RBC % (auto) 0.0 Estim Creat Clear Calc 105.0 Estimated GFR > 60 POC Glucose 248 H Vancomycin Trough 02/19/21 11:14 MCV MCH MCHC RDW Plt Count MPV Absolute Nucleated RBC Nucleated RBC % (auto) Estim Creat Clear Calc Estimated GFR POC Glucose 244 H Vancomycin Trough Assessment and Plan (1) Sepsis: Status: Acute (2) Diabetic foot infection: Status: Acute (3) Cellulitis: Status: Acute Assessment and Plan: 51 year old man with diabetes here with cellulitis and wound infection from a blister and has sepsis with elevated wbc and tachycardia Diabetes infected woud/cellulitis, sepsis--sepsis resolved MRI done - ?cannot exclude early septic arthritis and osteomyelitis?, oxycodone for pain, vascular consult-no further vascular intervention Id fu-may need skilled nursing antibiotics vanco trough yesterday 16 continue Vanco and? Levaquin, surgery following, Diabetes--continue Metformin and Trulicity,? ssi, add glipizide or lantus if persitent high, lovenox for DVT prophylaxis Quality Stroke Does the patient have a stroke diagnosis?: No VTE Prior VTE?: No VTE Risk Level:: Medical - moderate - high VTE Device Contraindication: Treatment Not Indicated VTE Drug Contraindication: N/A - Med Ordered
[2021-02-19 15:55] LABS: Glucose, Whole Blood 208 mg/dL (60-115)
[2021-02-19 20:23] LABS: Glucose, Whole Blood 258 mg/dL (60-115)
[2021-02-19] MEDS: vancomycin HCL 1,500 MG in 0.9 % Sodium Chloride 500 ML 250 MG IV (20:45)
[2021-02-19] MEDS: Acetaminophen 325 MG TABLET 650 MG PO (20:49)
[2021-02-19] MEDS: Melatonin 3 MG TABLET 6 MG PO (21:03)
[2021-02-20] VITALS: BP 154/81; PULSE 95; RESP 16; TEMP 36; O2SAT 97
[2021-02-20] MEDS: Omeprazole 20 MG CAPSULE.DR PO (05:31)
[2021-02-20 07:19] VITALS: BP 134/68; PULSE 105; RESP 17; TEMP 36.7; O2SAT 98
[2021-02-20 07:30] LABS: Glucose, Whole Blood 166 mg/dL (60-115)
[2021-02-20] MEDS: Insulin Lispro 100 UNIT/ML 3 ML VIAL SUBCUT ×2 (07:42→11:56)
[2021-02-20] MEDS: Finasteride 5 MG TABLET PO (07:42)
[2021-02-20] MEDS: metFORMIN HCl 1,000 MG TABLET 1000 MG PO (07:42)
[2021-02-20] MEDS: Multivitamin TABLET 1 TAB PO (07:42)
[2021-02-20] MEDS: levoFLOXacin 750 MG TABLET PO (07:42)
[2021-02-20] MEDS: 0.9 % Sodium Chloride Flush 3 ML SYRINGE IVFLUSH (07:43)
[2021-02-20 09:16] LABS: Creatinine Clr Calc Pharmacy 88.7; Estimated Glomerular Filt Rate > 60
[2021-02-20 09:17] LABS: Anion Gap 10 (12-20); Blood Urea Nitrogen 18 mg/dL (9-16); Calcium 8.8 mg/dL (8.4-10.2); Carbon Dioxide 32 mmol/L (22-29); Chloride 103 mmol/L (96-108); Creatinine Clr Calc Pharmacy 88.7; Estimated Glomerular Filt Rate > 60; Glucose Random 182 mg/dL (60-115); Potassium 4.1 mmol/L (3.3-5.1); Sodium 141 mmol/L (135-145)
[2021-02-20 09:27] LABS: Vancomycin Trough 17.8 mcg/mL (10.0-20.0)
[2021-02-20] MEDS: ondansetron HCL 4 MG/2 ML VIAL IVPUSH (09:50)
--- NOTE | 2021-02-20 09:51 | HE.PHANOTE ---
Vancomycin Dosing Addendum Patients trough 17.8, creatinine trending up ... decreasing dose to 1000 mg q12h for predicted AUC of 439. next trough 02/21/21 @2000
[2021-02-20] MEDS: vancomycin HCL 1,000 MG in 0.9 % Sodium Chloride 250 ML 270 MG IV (10:47)
[2021-02-20 11:16] LABS: Glucose, Whole Blood 185 mg/dL (60-115)
--- NOTE | 2021-02-20 12:27 | PM.DS ---
DS: Providers Provider Date of Service: 02/20/21 Date of admission: 02/15/21 08:22 Date of discharge: 02/20/21 Primary care physician: Migel Kurtz MD Consults: 02/15/21 08:26 Consult to General Surgery Routine Consulting Provider: James Cavanaugh Reason for consultation: necrotic ulcer Has provider been notified: No Consult to Infectious Diseases Routine Consulting Provider: Jess Lopes Reason for consultation: foot infection Has provider been notified: No 02/18/21 10:47 Consult to Vascular Surgery Routine Consulting Provider: Cliff Foley Reason for consultation: diabetic foot ulcer Has provider been notified: No DS: Diagnosis Discharge Diagnosis (1) Sepsis: Status: Acute (2) Diabetic foot infection: Status: Acute (3) Cellulitis: Status: Acute DS: Summary Hospital Course Hospital Course: 51 male with type 2 diabetes on Metformin 1 gm twice a day here with left foot infection that started about a week ago as a blood blister that he ended up poping and the area having becoming subsequently infected as noted in the picture below. He denies trauma, WBC is 16, no fever. Xray shows soft tissue swelling no bone involvment. Given Vanco and Zosyn in ED. Hospital course:patient came with diabetic foot infection: started on IV antibiotics, mri foot done and blood culture sent- Subsequently foot infection seems to be improving, MRi reviewed and seen by infectious disease -thought to be a early osteomyelitis patient will be going home- with IV ertapenem- please complete the course for 4 weeks. blood culture negative. Patient was advised to follow-up with Infectious Disease Dr Lopes ([phone]). also patient is to follow-up with PCP as well as wound care out patiently. monitor CBC, BMP, LFT Q weekly while on antibiotics. Above management discussed with the patient in detail length he understand and in agreement with the above plan, time spent 50 minutes and 50% time spent on counseling. Significant findings: As above. Procedures performed: None. Treatment and response: As above. Complications: None. Time Spent with Patient Time attestation: Total time spent providing and/or coordinating discharge services: Discharge coordination time: Greater than 30 minutes Quality: Stroke Does the patient have a stroke diagnosis?: No Physical Exam Vital Signs: Vital Signs: Last Vital Signs Temp 98.0 F 02/20/21 07:19 Pulse 105 H 02/20/21 07:19 Resp 17 02/20/21 07:19 BP 134/68 02/20/21 07:19 Pulse Ox 98 02/20/21 07:19 BMI result Body Mass Index 27.8 eneral: AO X 3, no acute distress Resp:? CTA bilateral CVS: S1,S2,RRR GI: +BS, NT, no distention Skin: skin right foot lateral ulcer area seems improving, no discharge. Neuro:? motor grossly intact Psych: appropriate affect DS: Data Data Completed and Pending Labs on day of discharge: Laboratory Results - last 24 hr 02/19/21 02/19/21 02/20/21 15:52 19:51 07:02 Sodium Potassium Chloride Carbon Dioxide Anion Gap BUN Creatinine Estim Creat Clear Calc Estimated GFR POC Glucose 208 H 258 H 166 H Random Glucose Calcium Vancomycin Trough 02/20/21 02/20/21 02/20/21 08:50 08:50 08:50 Sodium 141 Potassium 4.1 Chloride 103 Carbon Dioxide 32 H Anion Gap 10 L BUN 18 H Creatinine 1.16 1.16 Estim Creat Clear Calc 88.7 88.7 Estimated GFR > 60 > 60 POC Glucose Random Glucose 182 H Calcium 8.8 Vancomycin Trough 17.8 02/20/21 02/20/21 08:50 11:00 Sodium Potassium Chloride Carbon Dioxide Anion Gap BUN 18 H Creatinine 1.16 Estim Creat Clear Calc 88.7 Estimated GFR > 60 POC Glucose 185 H Random Glucose Calcium Vancomycin Trough Additional Comments Additional comments: MRI: IMPRESSION: Suspect small soft tissue ulceration along the lateral aspect of the forefoot at the level of the 5th metatarsophalangeal joint. There is abnormal signal in the underlying subcutaneous soft tissues which I suspect reflects a localized cellulitis, evolving abscess or adventitial bursitis. ? Indeterminant findings across the 5th metatarsophalangeal joint. This could be a sequela of osteoarthritis. However, cannot exclude early septic arthritis and osteomyelitis given the patient's history and the surrounding soft tissue abnormality. ? Generalized abnormality in the subcutaneous soft tissues dorsally compatible with a combination of edema and cellulitis. ? Generalized abnormality of the muscles compatible with nonspecific myositis. Discharge Plan Discharge Patient Disposition: Home Health Service Discharge Diagnosis: Diabetic foot- probable early osteomyelitis. Referrals: [facility] [Other] - 1 Day (IV ANTIBIOTIC DELIVERY, PHONE #[phone], THERE ARE NURSES MACHINE INSTALLER AFTER HOURS IF YOU HAVE QUESTIONS ABOUT YOUR IV AND CANNOT GET A HOLD OF VISITING NURSE.) [facility] [Outside] - 1 Day (ASSISTED FOR IV ANTIBIOTICS AND PICC LINE DRESSING CHANGES) Migel Kurtz MD [Primary Care Provider] - 1 Week Jess Lopes MD [Physician] - 1 Week (follow up in 2 weeks) Imani Schmitt MD [Physician] - 1 Week (follow up with wound care outpateintly.) Discharge Medications: New ertapenem [Invanz] 1 gram Recon Soln 1 g IV DAILY Qty: 28 RF: 0 Continued finasteride 5 mg tablet 1.25 mg PO DAILY RF: 0 Trulicity 1.5 mg/0.5 mL Pen Injector 1.5 mg SUBCUT FR@1000 RF: 0 metformin 500 mg Tablet 1,000 mg PO BIDWM RF: 0 multivitamin Tablet 1 tab PO DAILY RF: 0 hyoscyamine sulfate 0.125 mg tablet 0.125 mg PO QID PRN (Reason: dyspepsia) Qty: 7 RF: 0 cyclobenzaprine 10 mg tablet 10 mg PO TID PRN (Reason: muscle spasm) Qty: 7 RF: 0 Discharge Orders: Discharge Order (Routine); Ordered 02/20/21 Ordered By: Santana Herring Diet: advance to usual diet and diabetic diet Activity on Discharge: As tolerated Stand Alone Forms: Patient Portal Discharge page Other Ambulatory Orders: Basic Metabolic Panel (Routine) Timeframe: 1 Week Facility: [facility] - Location: Laboratory Ordered By: Santana Herring Complete Blood Count no Diff (Routine) Timeframe: 1 Week Facility: [facility] - Location: Laboratory Ordered By: Santana Herring Liver Panel (Routine) Timeframe: 1 Week Facility: [facility] - Location: Laboratory Ordered By: Santana Herring Care Plan Goals: Patient came with diabetic foot infection: started on IV antibiotics- seems to be improving thought to be a early osteomyelitis patient will be going home- with IV ertapenem- please complete the course for 4 weeks.. Patient was advised to follow-up with Infectious Disease Dr Lopes ([phone]). also patient is to follow-up with PCP as well as wound care out patiently. monitor CBC, BMP, LFT Q weekly while on antibiotics. Health Concerns: as above. Plan of Treatment: as above. Assessment: As above. Discharge Date/Time: 02/20/21 17:14
--- NOTE | 2021-02-20 12:31 | P.F2F_ITS ---
Service Date Service Date: 02/20/21 Encounter Date of encounter: 02/20/21 Encounter: Right foot osteomyelitis, dm Reasons for Services Reason for group home: diabetic teaching, medication management, medication treatment and teach disease management MD Overseeing Care: Migel Kurtz Homebound: Leaving the home is medically contraindicated at this time without the asist of a device and/or another person due th the listed conditions above and below. Homebound supporting statement: patient has diabetic foot infection, generalized weak post hospitalization , also needs antiobiotics , labs monitering and patient need help going to appointments. Certification: Based on the above findings, I certify that this patient is confined to the home and needs intermittent group home care, physical therapy and/or speech therapy, or continues to need occupational therapy. The patient is under my care, and I have initiated the establishment of the plan of care. The patient will be followed by a physician who will periodically review the plan of care.
--- NOTE | 2021-02-20 12:31 | MHC.CM.PN ---
Addendum entered by Sidra Ayala RN 02/20/21 14:29: [facility] has accepted pt and can complete SOC tomorrow afternoon, [facility] updated via referral. Addendum entered by Sidra Ayala RN 02/20/21 12:56: [facility] AWAITING TO FIND OUT IF THEY CAN REARRANGE SCHEDULE TO DO SOC TOMORROW 02/21/21. Original Note: PT HAS DISCHARGE ORDER IN, PT DOWN IN IR FOR PICC LINE PLACEMENT AT TIME OF THIS NOTE, REFERRALS SENT TO [facility] IV ABX ORDERS. ANTICIPATE PT WILL D/C LATER TODAY LONG MEDS CAN BE DELIVERED BY TOMORROW AND [facility] CAN START TOMORROW. CM ATTEMPTED TO MEET W/PT HOWEVER PT ALREADY OFF UNIT IN IR.
--- NOTE | 2021-02-20 15:17 | MHC.CM.PN ---
PT DISCHARGING HOME W/[facility] AND [facility] FOR IV ERTAPENEM 1GM DAILY X 28 DAYS, PER [facility] LIA[facility] PT DID VERY WELL W/TEACH AND WILL BE DELIVERED TOMORROW PRIOR TO NEXT DOSE. PT WILL ARRANGE TRANSPORT AFTER RECEIVING DOSE OF ERTAPENEM [facility] PICC LINE
[2021-02-20 15:28] VITALS: BP 144/85; PULSE 88; RESP 16; TEMP 36.7; O2SAT 97
--- NOTE | 2021-02-20 15:30 | HO.MIDLINE_ITS ---
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 Using ultrasound guidance, [LEFT BASILIC] vein access was obtained WITH MULTIPLE ATTEMPT BY THIS RN AND ASSISTANCE BY DR LEE. A SINGLE LUMEN, NON-PASV, ([id number]) MIDLINE WAS POSITIONED. The procedure was performed in [RM 272]. Ultrasound was used to document vein patency and for needle entry. A formal ultrasound picture was recorded. [facility] has released the line for use and it is currently dressed with a StatLock, Tegaderm, and CHG disc. Verification has been performed for blood return and line patency. Arm Circumference: [29cm] Equipment: [[employer] POWERGLIDE PRO MIDLINE] Catheter Type: [SINGLE LUMEN, NON-PASV, ([id number]] Lot #: [[id number]]
[2021-02-20] MEDS: Ertapenem Sodium 1 GM in 0.9 % Sodium Chloride 50 ML IV (15:47)
[2021-02-20 16:00] LABS: Glucose, Whole Blood 196 mg/dL (60-115)
== END 2021-02-20 17:14 | disposition home health service (06) | DRG 720 ==
LOC: HO.ED 08:17 → HO.EDOVER 08:35 → HO.IMC 18:54 → HO.S3 02-17 22:41
PROVIDERS: Admitting Provider Internal Medicine; Emergency Provider Internal Medicine; PCP Internal Medicine; Visit Provider Internal Medicine
DX: A41.9 Sepsis, unspecified organism (principal); L97.519 Non-pressure chronic ulcer of other part of right foot with unspecified severity; E11.621 Type 2 diabetes mellitus with foot ulcer; E11.40 Type 2 diabetes mellitus with diabetic neuropathy, unspecified; E11.69 Type 2 diabetes mellitus with other specified complication; M86.9 Osteomyelitis, unspecified; L03.115 Cellulitis of right lower limb; Z20.822 Contact with and (suspected) exposure to COVID-19; Z79.84 Long term (current) use of oral hypoglycemic drugs; Z79.899 Other long term (current) drug therapy
CPT/HCPCS: 36415; 36573; 73620; 73720; 80048; 80202; 82565; 82947; 83605; 84520; 85025; 85027; 87040; 87635; 96365; 96366; 96367; 99218; 99284; 99285; A9585; J1335; J2405; J2543; J3370

== ENCOUNTER 2021-02-27 13:28 | Outpatient (RCR) | payer OTHER, SELFPAY ==
--- NOTE | ~2021-02-27 | XR_ITS ---
EXAMINATION: XR FOOT, RIGHT CLINICAL INFORMATION: Right foot wound 5th metatarsal head. COMPARISON: 02/18/2021 and 02/15/2021. TECHNIQUE: AP, lateral, and oblique views of the right foot. FINDINGS: There is no evidence of acute fracture or dislocation of the right foot. There is an Achilles calcaneal spur present. There is some spurring about the tarsonavicular joint as well as the dorsal aspect of the talar bone. There is soft tissue swelling seen about the 5th metatarsophalangeal joint but without gas in the soft tissues or osteopenia or erosive change of adjacent bones. XR/XR foot RT 2V IMPRESSION: No significant bony abnormality of the right foot. Soft tissue swelling without definite evidence of acute osteomyelitis about the 5th metatarsophalangeal joint.
== END 2021-09-26 14:38 | disposition home or self-care (01) ==
LOC: HO.WCC 13:28
PROVIDERS: PCP Internal Medicine; Visit Provider Physician Assistant
DX: E11.621 Type 2 diabetes mellitus with foot ulcer (principal); L97.512 Non-pressure chronic ulcer of other part of right foot with fat layer exposed; B95.62 Methicillin resistant Staphylococcus aureus infection as the cause of diseases classified elsewhere; J44.9 Chronic obstructive pulmonary disease, unspecified; E11.40 Type 2 diabetes mellitus with diabetic neuropathy, unspecified; Z79.2 Long term (current) use of antibiotics
CPT/HCPCS: 11042; 11043; 15275; 73620; 99212; 99213; Q4186

== ENCOUNTER 2021-02-27 14:41 | Outpatient (REF) | payer OTHER, SELFPAY ==
[2021-02-27 15:22] LABS: Hematocrit 42.6 % (42.0-52.0); Hemoglobin 14.3 g/dl (14.0-18.0); Mean Corpuscular HGB Conc 33.6 g/dl (31.0-36.0); Mean Corpuscular Hemoglobin 30.2 pg (27.0-33.0); Mean Corpuscular Volume 89.9 fL (80.0-98.0); Mean Platelet Volume 9.6 fL (9.4-12.4); Platelet Count 299 X10*3/uL (160-400); Red Blood Count 4.74 X10*6/uL (4.60-5.80); Red Cell Distribution Width 11.7 % (11.0-16.0); White Blood Count 11.2 X10*3/uL (4.8-10.8)
[2021-02-27 15:43] LABS: Alanine Aminotransferase 26 U/L (0-40); Albumin Level 3.9 g/dL (3.5-5.0); Alkaline Phosphatase 118 U/L (39-117); Anion Gap 12 (12-20); Aspartate Amino Transferase 21 U/L (5-37); Bilirubin Direct < 0.2 mg/dL (0.0-0.5); Bilirubin Total 0.2 mg/dL (0.0-1.0); Blood Urea Nitrogen 24 mg/dL (9-16); Calcium 10.2 mg/dL (8.4-10.2); Carbon Dioxide 34 mmol/L (22-29); Chloride 101 mmol/L (96-108); Estimated Glomerular Filt Rate 57; Glucose Random 158 mg/dL (60-115); Sodium 142 mmol/L (135-145); Total Protein 8.2 g/dL (6.5-8.0)
== END 2021-02-27 14:42 | disposition home or self-care (01) ==
LOC: HO.LAB 14:41
PROVIDERS: Visit Provider Internal Medicine
DX: E11.628 Type 2 diabetes mellitus with other skin complications (principal)
CPT/HCPCS: 36415; 80048; 80076; 85027

== ENCOUNTER 2021-02-28 14:15 | Emergency (ER) | payer OTHER, SELFPAY ==
[2021-02-28 15:28] VITALS: BP 132/83; PULSE 92; RESP 16; TEMP 36.4; O2SAT 97; BMI 27.1
--- NOTE | 2021-02-28 16:24 | ED.GENADULT ---
HPI - General Adult General Chief complaint: General Medical Stated complaint: mid line pulled out Time Seen by Provider: 02/28/21 14:19 Source: patient Mode of arrival: ambulatory Limitations: no limitations History of Present Illness HPI narrative: Patient with right foot osteomyelitis diagnosed 02/15 discharged on 02/20 for outpatient IV ertapenem treatment today when visiting nurse came and changed the dressing accidentally pulled out the Medline. Patient came here for IV line replacement. Patient denies any significant in the wound the right foot no fever no chills Related Data Home Medications Medication Instructions Recorded Confirmed dulaglutide 1.5 mg/0.5 mL 1.5 mg SUBCUT FR@1000 02/15/21 02/15/21 subcutaneous pen injector (TrulicWishabi) finasteride 5 mg tablet 1.25 mg PO DAILY 02/15/21 02/17/21 metformin 500 mg tablet 1,000 mg PO BIDWM 02/15/21 02/15/21 multivitamin 1 tab PO DAILY 02/15/21 02/15/21 Previous Rx's Medication Instructions Recorded cyclobenzaprine 10 mg tablet 10 mg PO TID PRN #7 tab 12/29/20 hyoscyamine sulfate 0.125 mg tablet 0.125 mg PO QID PRN #7 tab 12/29/20 ertapenem 1 gram solution for 1 g IV DAILY #28 ea 02/20/21 injection (Invanz) Allergies Allergy/AdvReac Type Severity Reaction Status Date / Time No Known Allergies Allergy Verified 12/28/20 22:11 Review of Systems Review of Systems: Yes all other systems are reviewed and are negative PMFSH Past Medical History Medical History Diabetes GERD (gastroesophageal reflux disease) Social History Social History Household Members: Family Housing: House Do you presently have visiting nurse or other home services: No Alcohol intake: never Patient Tobacco Use Status: Never used Tobacco service: No Current occupational status: unemployed Physical Exam Vital Signs: Vital Signs: Last Vital Signs Temp 98 F 02/28/21 18:22 Pulse 85 02/28/21 18:22 Resp 18 02/28/21 18:22 BP 110/74 02/28/21 18:22 Pulse Ox 98 02/28/21 18:22 BMI result Body Mass Index 27.1 Appearance: Alert. Oriented X3. No acute distress. ENT: Pharynx normal. Oral Mucosa moist Neck: Normal inspection. Neck supple. CVS: Normal heart rate and rhythm. Pulses normal. Respiratory: No respiratory distress. Equal air entry bilateral, Abdomen: Soft and nontender. Skin: Skin warm and dry. Normal skin color. Normal skin turgor. Extremities: No lower extremity edema. No calf tenderness right foot 5th metatarsal healing wound Neuro: Oriented X 3. No motor deficit. Discharge Plan Discharge Clinical Impression: Diabetic foot infection Patient Disposition: Home, Self-Care Instructions: Diabetic Foot Ulcers (ED) Additional Instructions: Call radiology department [phone] in the morning for medline placement Prescriptions: No Action finasteride 5 mg tablet 1.25 mg PO DAILY RF: 0 Trulicity 1.5 mg/0.5 mL Pen Injector 1.5 mg SUBCUT FR@1000 RF: 0 metformin 500 mg Tablet 1,000 mg PO BIDWM RF: 0 multivitamin Tablet 1 tab PO DAILY RF: 0 ertapenem [Invanz] 1 gram Recon Soln 1 g IV DAILY Qty: 28 RF: 0 hyoscyamine sulfate 0.125 mg tablet 0.125 mg PO QID PRN (Reason: dyspepsia) Qty: 7 RF: 0 cyclobenzaprine 10 mg tablet 10 mg PO TID PRN (Reason: muscle spasm) Qty: 7 RF: 0 Interventions: ED Discharge Assessment Last Done: 02/28/21 18:38 Discharge Date/Time: 02/28/21 18:39
[2021-02-28] MEDS: Ertapenem Sodium 1 GM in 0.9 % Sodium Chloride 50 ML IV (17:53)
[2021-02-28 18:22] VITALS: BP 110/74; PULSE 85; RESP 18; TEMP 36.6; O2SAT 98
--- NOTE | 2021-02-28 18:38 | PC.NURSE ---
BACITRACIN AND DSD APPLIED
== END 2021-02-28 18:39 | disposition home or self-care (01) ==
PROVIDERS: Emergency Provider Internal Medicine; PCP Internal Medicine
DX: E11.628 Type 2 diabetes mellitus with other skin complications (principal); Z79.4 Long term (current) use of insulin
CPT/HCPCS: 96365; 99283; 99284; J1335

== ENCOUNTER 2021-03-01 10:33 | Outpatient (REF) | payer OTHER, SELFPAY ==
--- NOTE | 2021-03-01 12:38 | HO.MIDLINE_ITS ---
PICC Line Insertion NPICC Diagnosis: [Foot Wound] Indication: [skilled nursing antibiotics needed] Pertinent Labs: [none] Technique: Using sterile technique including cap and mask, glove and drape, the [left] arm was prepped and draped in the usual sterile fashion of full barrier technique with CHG. Using ultrasound guidance, [left basilic] vein access was o btained on first attempt. [A single lumen [id number] non-PASV] Midline was positioned. The procedure was performed in [S272] [facility] [place]. Ultrasound was used to document vein patency and for needle entry. A formal ultrasound picture was recorded. [facility] [employer] Support Engineer has released the line for use and it is currently dressed with a StatLock, Tegaderm, and CHG disc. Verification has been performed for blood return and line patency. Arm Circumference: [32 CM] Equipment: [[employer] Powerglide Pro Midline] Catheter Type: [20G x 8CM Single lumen Non-PASV midline] Lot #: [[id number]]
--- NOTE | 2021-03-01 12:38 | HO.MIDLINE ---
PICC Line Insertion NPICC Diagnosis: [Foot Wound] Indication: [FDC antibiotics needed] Pertinent Labs: [none] Technique: Using sterile technique including cap and mask, glove and drape, the [left] arm was prepped and draped in the usual sterile fashion of full barrier technique with CHG. Using ultrasound guidance, [left basilic] vein access was obtained on first attempt. [A single lumen [id number] non-PASV] Midline was positioned. The procedure was performed in [S272] [facility] [place]. Ultrasound was used to document vein patency and for needle entry. A formal ultrasound picture was recorded. [facility] [employer] Management Assistant has released the line for use and it is currently dressed with a StatLock, Tegaderm, and CHG disc. Verification has been performed for blood return and line patency. Arm Circumference: [32 CM] Equipment: [[employer] Powerglide Pro Midline] Catheter Type: [20G x 8CM Single lumen Non-PASV midline] Lot #: [[id number]]
== END 2021-03-01 10:34 | disposition home or self-care (01) ==
LOC: HO.RADIR 10:33
PROVIDERS: Visit Provider Internal Medicine
DX: E11.628 Type 2 diabetes mellitus with other skin complications (principal); L08.9 Local infection of the skin and subcutaneous tissue, unspecified
CPT/HCPCS: 36410

== ENCOUNTER → 2021-03-05 11:19 | Outpatient (BNVA) | payer OTHER, SELFPAY | PROVIDERS: PCP Internal Medicine; Visit Provider Internal Medicine | DX: E11.628 Type 2 diabetes mellitus with other skin complications (principal); L08.9 Local infection of the skin and subcutaneous tissue, unspecified; A41.9 Sepsis, unspecified organism | CPT/HCPCS: 99212 ==

== ENCOUNTER 2021-03-19 13:09 | Outpatient (REF) | payer OTHER, SELFPAY ==
[2021-03-19 13:42] LABS: MANUAL DIFF FLAG NO
[2021-03-19 14:10] LABS: Basophils Percent Auto 0.3 % (0-2); Eosinophils Absolute Auto 0.3 X10*3/uL (0.0-0.4); Eosinophils Percent Auto 3.4 % (0-4); Hematocrit 42.3 % (42.0-52.0); Hemoglobin 14.4 g/dl (14.0-18.0); Imm Gran Abs Auto 0.03 X10*3/uL (0.00-0.03); Imm Gran Pct Auto 0.4 % (0.0-0.4); Lymphocytes Absolute Auto 1.7 X10*3/uL (1.2-4.9); Lymphocytes Percent Auto 21.8 % (20-40); Mean Corpuscular Hemoglobin 30.3 pg (27.0-33.0); Mean Corpuscular Volume 88.9 fL (80.0-98.0); Monocytes Absolute Auto 0.5 X10*3/uL (0.1-1.2); Neutrophils Absolute Auto 5.5 x10*3/uL (2.0-8.3); Neutrophils Percent Auto 68.1 % (45-73); Red Blood Count 4.76 X10*6/uL (4.60-5.80); Red Cell Distribution Width 13.2 % (11.0-16.0)
[2021-03-19 14:13] LABS: Platelet Count 166 X10*3/uL (160-400)
[2021-03-19 14:42] LABS: Alanine Aminotransferase 38 U/L (0-40); Alkaline Phosphatase 102 U/L (39-117); Anion Gap 10 (12-20); Aspartate Amino Transferase 28 U/L (5-37); Bilirubin Direct 0.2 mg/dL (0.0-0.5); Bilirubin Total 0.4 mg/dL (0.0-1.0); Blood Urea Nitrogen 20 mg/dL (9-16); Calcium 9.6 mg/dL (8.4-10.2); Carbon Dioxide 30 mmol/L (22-29); Chloride 105 mmol/L (96-108); Estimated Glomerular Filt Rate > 60; Glucose Random 150 mg/dL (60-115); Potassium 4.8 mmol/L (3.3-5.1); Sodium 140 mmol/L (135-145); Total Protein 7.8 g/dL (6.5-8.0)
== END 2021-03-19 13:10 | disposition home or self-care (01) ==
LOC: HO.LABR 13:09
PROVIDERS: Visit Provider Internal Medicine
DX: Z45.2 Encounter for adjustment and management of vascular access device (principal); E11.621 Type 2 diabetes mellitus with foot ulcer; L03.119 Cellulitis of unspecified part of limb
CPT/HCPCS: 36415; 80048; 80076; 85025

== ENCOUNTER → 2021-03-20 15:04 | Outpatient (BNVA) | payer OTHER, SELFPAY | PROVIDERS: PCP Internal Medicine; Visit Provider Internal Medicine | DX: E11.628 Type 2 diabetes mellitus with other skin complications (principal); A41.9 Sepsis, unspecified organism; Z79.2 Long term (current) use of antibiotics | CPT/HCPCS: 99212 ==

== ENCOUNTER 2021-04-10 10:24 | Outpatient (REF) | payer OTHER, SELFPAY ==
[2021-04-10 10:50] LABS: COVID-19 Test Positive (Negative); IDNOW Serial# 16C4AD1C
== END 2021-04-10 10:25 | disposition home or self-care (01) ==
LOC: HO.LAB 10:24
PROVIDERS: Visit Provider Internal Medicine
DX: Z20.822 Contact with and (suspected) exposure to COVID-19 (principal)
CPT/HCPCS: 87635; C9803

== ENCOUNTER → 2021-04-19 14:39 | Outpatient (BNVA) | payer OTHER, SELFPAY | PROVIDERS: Visit Provider Internal Medicine | DX: A41.9 Sepsis, unspecified organism (principal) | CPT/HCPCS: 99212 ==